=== PATIENT | female | born 1960 | race American Indian/Alaskan Native ===

== ENCOUNTER 2016-11-08 14:16 | Emergency (ER) | payer MEDICAID ==
[2016-11-08 14:17] VITALS: BMI 25.0
[2016-11-08 14:36] VITALS: RESP 18; TEMP 98.6; O2SAT 98
--- NOTE | 2016-11-08 16:30 | C.PDOC ---
History Of Present Illness 56 y/o female with H/o chronic lower back pain, DJD, and sciatica presents to ED with complaints of lower back pain worse with movement. Patient noted moving fridge x2 days ago prompted pain. Notes this feels like her usual flare ups, no new symptoms. Patient denies direct trauma, incontinence, urinary frequency, dysuria or any other complaints at this time. Time Seen by Provider: 11/08/16 15:35 Chief Complaint (Nursing): Back Pain History Per: Patient History/Exam Limitations: no limitations Onset/Duration Of Symptoms: Days Current Symptoms Are (Timing): Still Present Quality Of Discomfort: "Pain" Past Medical History Reviewed: Historical Data, Nursing Documentation, Vital Signs Vital Signs: Last Vital Signs Temp 98.6 F 11/08/16 14:35 Pulse 76 11/08/16 16:41 Resp 18 11/08/16 16:41 BP 124/72 11/08/16 16:41 Pulse Ox 98 11/08/16 17:53 - Medical History PMH: Asthma, Back Problems (Sciatica), HTN Family History: States: Unknown Family Hx - Social History Hx Tobacco Use: No Hx Alcohol Use: No Hx Substance Use: No - Immunization History Hx Tetanus Toxoid Vaccination: No Hx Influenza Vaccination: No Hx Pneumococcal Vaccination: No Review Of Systems Except As Marked, All Systems Reviewed And Found Negative. Genitourinary: Negative for: Dysuria, Frequency Musculoskeletal: Positive for: Back Pain Skin: Negative for: Rash Physical Exam - Physical Exam Appears: Non-toxic, No Acute Distress Skin: Normal Color, Warm Head: Atraumatic, Normacephalic Eye(s): bilateral: Normal Inspection, EOMI Nose: Normal Oral Mucosa: Moist Neck: Normal ROM, Supple Chest: Symmetrical Cardiovascular: Rhythm Regular Respiratory: Normal Breath Sounds, No Rales, No Rhonchi, No Wheezing Gastrointestinal/Abdominal: Soft, No Tenderness, No Guarding, No Rebound Back: No CVA Tenderness, No Vertebral Tenderness, Other (Left paralumbar tenderness) Extremity: Normal ROM Neurological/Psych: Oriented x3, Normal Speech, Normal Sensation, Other (No focal deficits) Gait: Steady (without any evidence of discomfort) ED Course And Treatment O2 Sat by Pulse Oximetry: 98 (RA) Pulse Ox Interpretation: Normal Progress Note: Patient requesting Tramadol. On reassessment, patient resting comfortably, no longer having back pain, no fever, no bony tenderness, no numbness, no weakness, no abdominal pain. Patient is ambulatory in the emergency department with no discomfort. Patient was instructed to follow up with physician/clinic in 1-2 days for further evaluation or return to ED if symptoms persist or worsen. HUNTER evaluated patient received Tylenol w/codeine 30 tabs 10/22/16. 10/14/16 60 tabs of Tramadol. Pt was instructed to follow upwith Pain management /PMD. Reevaluation Time: 04:15 (Patient feeling better) Reassessment Condition: Improved Disposition - Disposition Disposition: HOME/ ROUTINE Disposition Time: 16:30 Condition: STABLE Additional Instructions: Follow up with primary medical doctor in 1-3 days without fail for further evaluation. Take medications as prescribed. Return to the emergency department at any time if symptoms persist or worsen. Prescriptions: Ketorolac Tromethamine [Toradol] 10 mg PO Q6 PRN #20 tab PRN Reason: Pain, Moderate (4-7) Instructions: Acute Low Back Pain (ED) - Clinical Impression Clinical Impression: Lumbar back pain - PA / CORRECTIONAL OFFICER CAPTAIN / Resident Statement MD/DO has reviewed & agrees with the documentation as recorded. - Scribe Statement The provider has reviewed the documentation as recorded by the Delores Lynn All medical record entries made by the Delores were at my direction and personally dictated by me. I have reviewed the chart and agree that the record accurately reflects my personal performance of the history, physical exam, medical decision making, and the department course for this patient. I have also personally directed, reviewed, and agree with the discharge instructions and disposition.
[2016-11-08 16:43] VITALS: BP 124/72; PULSE 76
== END 2016-11-08 16:43 | disposition home or self-care (01) ==
LOC: C.ER 14:16
DX: M54.5 Low back pain (principal)

== ENCOUNTER 2016-12-25 06:13 | Emergency (ER) | payer MEDICAID, OTHER ==
[2016-12-25 06:13] VITALS: BMI 25.0
[2016-12-25 06:23] VITALS: BP 136/96; PULSE 75; RESP 14; TEMP 97.5; O2SAT 100
[2016-12-25] MEDS ORDERED: Lidocaine 5% Patch TD STA (07:16)
[2016-12-25] MEDS ORDERED: Lidocaine 5% Patch TD ONE (07:20)
--- NOTE | 2016-12-25 07:33 | C.PDOC ---
History Of Present Illness 56 year old female who presents to the ER with a complaint of chronic lower back pain exacerbation that began 2 days ago after doing heavy lifting. Patient states pain is dull, constant, 6/10, non radiating, no associated numbness. Patient denies incontinence, dysuria, hematuria, weakness, or numbness. Patient states, chronic injury since 1989. Time Seen by Provider: 12/25/16 07:07 Chief Complaint (Nursing): Back Pain History Per: Patient History/Exam Limitations: no limitations Onset/Duration Of Symptoms: Days Current Symptoms Are (Timing): Still Present Quality Of Discomfort: Unable To Describe Previous Symptoms: Chronic Pain Associated Symptoms: None Recent travel outside of the [place]: No Past Medical History Reviewed: Historical Data, Nursing Documentation, Vital Signs Vital Signs: Last Vital Signs Temp 97.5 F L 12/25/16 06:20 Pulse 75 12/25/16 06:20 Resp 14 12/25/16 06:20 BP 136/96 H 12/25/16 06:20 Pulse Ox 100 12/25/16 07:44 - Medical History PMH: Asthma, Back Problems (Sciatica), HTN Surgical History: No Surg Hx Family History: States: Unknown Family Hx - Social History Hx Tobacco Use: No Hx Alcohol Use: No Hx Substance Use: No - Immunization History Hx Tetanus Toxoid Vaccination: No Hx Influenza Vaccination: No Hx Pneumococcal Vaccination: No Review Of Systems Genitourinary: Negative for: Dysuria, Incontinence, Hematuria Musculoskeletal: Positive for: Back Pain Neurological: Negative for: Weakness, Numbness Physical Exam - Physical Exam Appears: Non-toxic, No Acute Distress Skin: Normal Color, Warm, Dry Head: Atraumatic, Normacephalic Oral Mucosa: Moist Back: Normal Inspection, No CVA Tenderness, No Vertebral Tenderness, No Paraspinal Tenderness Extremity: Normal ROM (x4), No Tenderness Neurological/Psych: Oriented x3, Normal Speech, Normal Cognition Gait: Steady ED Course And Treatment O2 Sat by Pulse Oximetry: 100 (Room air) Pulse Ox Interpretation: Normal Medical Decision Making Medical Decision Making: Plan: * Tylenol * Motrin * Lidoderm Patient refusing all the above medications. Requesting Toradol, given,. Requesting Tramadol Rx. Patient with multiple Tram[place] Rx on [place] Aware. Requesting discharge. Disposition Counseled Patient/Family Regarding: Diagnosis, Need For Followup - Disposition Disposition: HOME/ ROUTINE Disposition Time: 09:03 Condition: STABLE Instructions: Chronic Back Pain (ED) - Clinical Impression Clinical Impression: Chronic back pain - Scribe Statement The provider has reviewed the documentation as recorded by the Scribosiris Edwards All medical record entries made by the Scribe were at my direction and personally dictated by me. I have reviewed the chart and agree that the record accurately reflects my personal performance of the history, physical exam, medical decision making, and the department course for this patient. I have also personally directed, reviewed, and agree with the discharge instructions and disposition.
== END 2016-12-25 08:50 | disposition home or self-care (01) ==
LOC: C.ER 06:13
DX: G89.29 Other chronic pain (principal); M54.9 Dorsalgia, unspecified
CPT/HCPCS: 96372; 99283; J1885

== ENCOUNTER 2017-05-02 15:00 | Emergency (ER) | payer SELFPAY ==
[2017-05-02 15:01] VITALS: BMI 25.0
[2017-05-02 15:34] VITALS: O2SAT 95
--- NOTE | 2017-05-02 16:09 | C.PDOC ---
History Of Present Illness 56 year old female, with history of chronic back pain, presents to the ER complaining of "sciatica" which has been present for four days. Patient states that the pain radiates down her left leg. She reports that there was no relief with Advil or Tylenol. Patient states that she tried calling her primary care provider but she could not visit her today. Time Seen by Provider: 05/02/17 15:57 Chief Complaint (Nursing): Back Pain History Per: Patient History/Exam Limitations: no limitations Onset/Duration Of Symptoms: Days Current Symptoms Are (Timing): Still Present Severity: Moderate Past Medical History Reviewed: Historical Data, Nursing Documentation, Vital Signs Vital Signs: Last Vital Signs Temp 98.7 F 05/02/17 15:34 Pulse 90 05/02/17 15:34 Resp 17 05/02/17 15:34 BP 136/87 05/02/17 15:34 Pulse Ox 95 05/02/17 16:52 - Medical History PMH: Asthma, Back Problems (Sciatica), HTN Surgical History: No Surg Hx Family History: States: No Known Family Hx - Social History Hx Tobacco Use: No Hx Alcohol Use: No Hx Substance Use: No - Immunization History Hx Tetanus Toxoid Vaccination: No Hx Influenza Vaccination: No Hx Pneumococcal Vaccination: No Review Of Systems Constitutional: Negative for: Fever, Weakness, Malaise Cardiovascular: Negative for: Chest Pain, Palpitations Respiratory: Negative for: Cough, Shortness of Breath Gastrointestinal: Negative for: Vomiting, Abdominal Pain, Diarrhea Genitourinary: Negative for: Dysuria Musculoskeletal: Positive for: Back Pain (sciatica, pain radiates down the left leg) Physical Exam - Physical Exam Appears: Non-toxic, No Acute Distress Skin: Normal Color Head: Atraumatic, Normacephalic Eye(s): bilateral: Normal Inspection, EOMI Nose: Normal Neck: Supple Chest: Symmetrical Cardiovascular: Rhythm Regular Respiratory: Normal Breath Sounds, No Accessory Muscle Use Back: Normal Inspection (no bulging, no swelling), No Vertebral Tenderness, Paraspinal Tenderness (paralumbar tenderness), Straight Leg Raising (straight leg raising is negative) Extremity: Bilateral: Atraumatic, Normal Color And Temperature, Normal ROM Neurological/Psych: Oriented x3, Normal Speech, Other (no focal deficits) ED Course And Treatment O2 Sat by Pulse Oximetry: 95 (RA) Pulse Ox Interpretation: Normal Medical Decision Making Medical Decision Making: Impression: chronic back pain, sciatica [place] reviwed: 04/15/2017 TRAMADOL HCL 50 MG TABLET 45.0 04/13/2017 TRAMADOL HCL 50 MG TABLET 15.0 03/30/2017 TRAMADOL HCL 50 MG TABLET 45.0 03/27/2017 TRAMADOL HCL 50 MG TABLET 15.0 03/14/2017 TRAMADOL HCL 50 MG TABLET 15.0 Plan: * Toradol 30 mg PO * Ultram 50 mg PO Re-eval: 1715 Patient reports feeling better. Patient is asking for Rx Tramadol. Patient will be given short day supply of meds. Instruct patient to follow up with her PCP. Disposition Counseled Patient/Family Regarding: Studies Performed, Diagnosis, Need For Followup, Rx Given - Disposition Referrals: Doroteo Ivy MD [Medical Doctor] - Disposition: HOME/ ROUTINE Disposition Time: 17:20 Condition: STABLE Additional Instructions: Please follow up with your primary medicine or clinic in 2-5 days for further evaluation. Take pain medications as needed. Return to the emergency department at any time if symptoms persist or worsen. Prescriptions: Ibuprofen [Motrin] 600 mg PO Q8 #30 tab traMADol [Ultram] 50 mg PO Q8 #15 tab Instructions: Sciatica (ED) Forms: [employer] ([place]) - POA Present On Arrival: None - Clinical Impression Clinical Impression: Sciatic pain - PA / STUDIO SALES ASSOCIATE / Resident Statement MD/DO has reviewed & agrees with the documentation as recorded. - Scribe Statement The provider has reviewed the documentation as recorded by the Delores Blake Provider Attestation All medical record entries made by the Delores were at my direction and personally dictated by me. I have reviewed the chart and agree that the record accurately reflects my personal performance of the history, physical exam, medical decision making, and the department course for this patient. I have also personally directed, reviewed, and agree with the discharge instructions and disposition.
[2017-05-02 17:52] VITALS: BP 156/90; PULSE 88; RESP 16; TEMP 98.8
== END 2017-05-02 17:50 | disposition home or self-care (01) ==
LOC: C.ER 15:00
DX: M54.30 Sciatica, unspecified side (principal); I10 Essential (primary) hypertension
CPT/HCPCS: 96372; 99284; J1885

== ENCOUNTER 2017-05-18 14:39 | Emergency (ER) | payer MEDICAID ==
[2017-05-18 14:39] VITALS: BMI 25.0
--- NOTE | 2017-05-18 16:42 | C.PDOC ---
History Of Present Illness 56 y/io female c/o lower back pain x 2 days, hx of sciatic and bulging disks. pt sts pain typical of her chronic pain. pr requesting tramadol rx. pt's [place] aware reviewed: Filled ID Written Drug QTY Days Prescriber Rx # Pharmacy * Refills MME/D Pymt Type DESKTOP SUPPORT TECHNICIAN 05/02/2017 1 05/02/2017 TRAMADOL HCL 50 MG TABLET 15.0 5 KA MANUEL [id number] [facility] ([id number]) 0 15.0 [facility] [place] 04/15/2017 1 04/13/2017 TRAMADOL HCL 50 MG TABLET 45.0 11 PA LAURA [id number] [facility] ([id number]) 1 20.455 [facility] [place] 04/13/2017 1 04/13/2017 TRAMADOL HCL 50 MG TABLET 15.0 3 PA ALURA [id number] [facility] ([id number]) 0 25.0 [facility] [place] 03/30/2017 1 03/14/2017 TRAMADOL HCL 50 MG TABLET 45.0 11 PA LAURA [id number] [facility] ([id number]) 2 20.455 [facility] [place] 03/27/2017 1 03/14/2017 TRAMADOL HCL 50 MG TABLET 15.0 3 PA LAURA [id number] [facility] ([id number]) 1 25.0 [facility] [place] 03/14/2017 1 03/14/2017 TRAMADOL HCL 50 MG TABLET 60.0 15 PA LAURA [id number] [facility] ([id number]) 0 20.0 [facility] [place] 1 pt ran out of tramadol. denies any numbness, tingling, saddle anesthesia or weakness, no bladder or bowel dysfunction. Time Seen by Provider: 05/18/17 15:58 Chief Complaint (Nursing): Back Pain History Per: Patient History/Exam Limitations: no limitations Onset/Duration Of Symptoms: Days (2) Current Symptoms Are (Timing): Still Present Quality Of Discomfort: "Pain" Previous Symptoms: Back Pain (lower ) Associated Symptoms: denies: Incontinence, New Weakness, New Numbness Past Medical History Reviewed: Historical Data, Nursing Documentation, Vital Signs Vital Signs: Last Vital Signs Temp 97.7 F 05/18/17 16:50 Pulse 80 05/18/17 16:50 Resp 16 05/18/17 16:50 BP 137/96 H 05/18/17 16:50 Pulse Ox 99 05/18/17 16:55 - Medical History PMH: Asthma, Back Problems (Sciatica), HTN Surgical History: No Surg Hx Family History: States: Unknown Family Hx - Social History Hx Tobacco Use: No Hx Alcohol Use: No Hx Substance Use: No - Immunization History Hx Tetanus Toxoid Vaccination: No Hx Influenza Vaccination: No Hx Pneumococcal Vaccination: No Review Of Systems Musculoskeletal: Positive for: Back Pain (lower ) Physical Exam - Physical Exam Appears: Non-toxic, No Acute Distress Skin: Normal Color, Warm, Dry Back: No Vertebral Tenderness (midline ), Paraspinal Tenderness (left, lumbar ) Extremity: Capillary Refill (less than 2 seconds ) Neurological/Psych: Oriented x3, Normal Speech, Normal Cognition, Normal Motor, Normal Sensation Gait: Steady ED Course And Treatment O2 Sat by Pulse Oximetry: 99 (on RA) Pulse Ox Interpretation: Normal Medical Decision Making Medical Decision Making: pt requesting tramadol,. gets frequent rx for tramadol form pmd. discussed with patient how I can't write refill, pt given toradol and will get rx for ibupforen. pt ambulating with no distress. Disposition Counseled Patient/Family Regarding: Diagnosis, Need For Followup, Rx Given - Disposition Referrals: Doroteo Ivy MD [Medical Doctor] - Disposition: HOME/ ROUTINE Disposition Time: 16:42 Condition: STABLE Additional Instructions: FOllow up with Dr Ivy as soon as possible. Take ibuprofen as prescribed. Avoid heavy lifting. Prescriptions: Ibuprofen [Motrin] 600 mg PO TID #30 tab Instructions: Chronic Back Pain (ED) Forms: [facility] ([place]), General Discharge Instructions - Clinical Impression Clinical Impression: Chronic back pain - PA / COMMERCIAL LENDING ASSISTANT / Resident Statement MD/DO has reviewed & agrees with the documentation as recorded. - Scribe Statement The provider has reviewed the documentation as recorded by the Scribe (Lien Godinez) All medical record entries made by the Scribe were at my direction and personally dictated by me. I have reviewed the chart and agree that the record accurately reflects my personal performance of the history, physical exam, medical decision making, and the department course for this patient. I have also personally directed, reviewed, and agree with the discharge instructions and disposition.
[2017-05-18 16:50] VITALS: BP 137/96; PULSE 80; RESP 16; TEMP 97.7
[2017-05-18 16:55] VITALS: O2SAT 99
== END 2017-05-18 16:58 | disposition home or self-care (01) ==
LOC: C.ER 14:39
DX: G89.29 Other chronic pain (principal); M54.5 Low back pain; J45.909 Unspecified asthma, uncomplicated; I10 Essential (primary) hypertension
CPT/HCPCS: 96372; 99283; J1885

== ENCOUNTER 2017-06-09 12:58 | Emergency (ER) | payer MEDICAID ==
[2017-06-09 13:14] VITALS: BMI 22.7
[2017-06-09 13:18] VITALS: BP 137/97; PULSE 76; RESP 20; TEMP 97.5; O2SAT 99
--- NOTE | 2017-06-09 13:41 | C.PDOC ---
History Of Present Illness 56 y/o female with history of sciatica presents to ED with complaints of sciatica exacerbation radiating to left hip and legs. Patient is requesting Toradol and denies recent injury, weakness, numbness, fever, chills, bowel/ bladder incontinence or any other complaints at this time. States she usually takes Tramadol and will f/u with her PMD Time Seen by Provider: 06/09/17 13:22 Chief Complaint (Nursing): Back Pain History Per: Patient History/Exam Limitations: no limitations Onset/Duration Of Symptoms: Days Current Symptoms Are (Timing): Still Present Quality Of Discomfort: "Pain" Past Medical History Reviewed: Historical Data, Nursing Documentation, Vital Signs Vital Signs: Last Vital Signs Temp 97.5 F L 06/09/17 13:14 Pulse 76 06/09/17 13:14 Resp 20 06/09/17 13:14 BP 137/97 H 06/09/17 13:14 Pulse Ox 99 06/09/17 14:00 - Medical History PMH: Asthma, Back Problems (Sciatica), HTN Surgical History: No Surg Hx Family History: States: No Known Family Hx - Social History Hx Tobacco Use: No Hx Alcohol Use: No Hx Substance Use: No - Immunization History Hx Tetanus Toxoid Vaccination: No Hx Influenza Vaccination: No Hx Pneumococcal Vaccination: No Review Of Systems Constitutional: Negative for: Fever, Chills Gastrointestinal: Negative for: Nausea, Vomiting Genitourinary: Negative for: Dysuria, Incontinence Musculoskeletal: Positive for: Back Pain Skin: Negative for: Rash Neurological: Negative for: Weakness, Numbness Physical Exam - Physical Exam Appears: Non-toxic, No Acute Distress Skin: Warm, Dry, No Rash Head: Atraumatic, Normacephalic Oral Mucosa: Moist Neck: Normal ROM, Supple Gastrointestinal/Abdominal: Soft, No Tenderness, No Guarding, No Rebound Back: No CVA Tenderness Extremity: Normal ROM, Capillary Refill (<3 seconds) Neurological/Psych: Oriented x3, Normal Motor, Normal Sensation ED Course And Treatment O2 Sat by Pulse Oximetry: 99 (RA) Pulse Ox Interpretation: Normal Disposition Counseled Patient/Family Regarding: Diagnosis, Need For Followup, Rx Given - Disposition Disposition: HOME/ ROUTINE Disposition Time: 14:03 Condition: STABLE Additional Instructions: Follow up with your doctor. Prescriptions: Acetaminophen/Codeine [Tylenol/Codeine 300 MG/30 MG] 1 tab PO TID #12 tab Forms: [facility] (British), General Discharge Instructions - POA Present On Arrival: None - Clinical Impression Clinical Impression: Sciatica - Scribe Statement The provider has reviewed the documentation as recorded by the Scribosiris Lynn All medical record entries made by the Scribe were at my direction and personally dictated by me. I have reviewed the chart and agree that the record accurately reflects my personal performance of the history, physical exam, medical decision making, and the department course for this patient. I have also personally directed, reviewed, and agree with the discharge instructions and disposition.
== END 2017-06-09 14:23 | disposition home or self-care (01) ==
LOC: C.ER 12:58
DX: M54.30 Sciatica, unspecified side (principal); I10 Essential (primary) hypertension
CPT/HCPCS: 96372; 99283; J1885

== ENCOUNTER 2017-08-03 10:29 | Emergency (ER) | payer MEDICAID, OTHER ==
[2017-08-03 10:29] VITALS: BMI 22.7
[2017-08-03 10:40] VITALS: O2SAT 97
--- NOTE | 2017-08-03 11:21 | C.PDOC ---
History Of Present Illness 56 yo female with PMH HTN c/o left sided back pain radiating down the left leg. Pt notes she has had this problem for 20+ years and the pain exacerbated "every now and then, especially with the cold weather." Pt notes she usually gets Tramadol from doctor Biju who referred her to pain management but she hasnt followed up. She has no new symptoms, no new trauma. Pt had MRI last Mar 2017 noting "herniated discs and arthritis." Denies change in sensation, weakness, urinary/bowel incontinence. Of note, pt admits to a h/o HTN though notes she does not take medicine noting " i dont need any medicine." Denies dizziness, chest pain, sob, headache, or visual changes. Time Seen by Provider: 08/03/17 11:06 Chief Complaint (Nursing): Back Pain History Per: Patient History/Exam Limitations: no limitations Onset/Duration Of Symptoms: Days, Intermittent Episodes Current Symptoms Are (Timing): Still Present Associated Symptoms: denies: Incontinence, New Weakness, New Numbness Exacerbating Factor(s): Movement Past Medical History Vital Signs: Last Vital Signs Temp 98.1 F 08/03/17 11:39 Pulse 66 08/03/17 11:39 Resp 18 08/03/17 11:39 BP 151/102 H 08/03/17 11:39 Pulse Ox 97 08/03/17 11:39 - Medical History PMH: Asthma, Back Problems (Sciatica), Bronchitis, HTN Family History: States: Unknown Family Hx - Social History Hx Tobacco Use: No Hx Alcohol Use: No Hx Substance Use: No - Immunization History Hx Tetanus Toxoid Vaccination: No Hx Influenza Vaccination: No Hx Pneumococcal Vaccination: No Review Of Systems Except As Marked, All Systems Reviewed And Found Negative. Musculoskeletal: Positive for: Back Pain Physical Exam - Physical Exam Appears: Well, Non-toxic, No Acute Distress Skin: Normal Color, Warm, Dry Head: Atraumatic, Normacephalic Eye(s): bilateral: Normal Inspection, EOMI Nose: Normal Oral Mucosa: Moist Neck: Normal, Normal ROM, Supple Chest: Symmetrical Cardiovascular: Rhythm Regular Respiratory: Normal Breath Sounds, No Accessory Muscle Use Gastrointestinal/Abdominal: Normal Exam, Soft, No Tenderness Back: No CVA Tenderness, No Vertebral Tenderness, Paraspinal Tenderness ((+) left lower paralumbar tenderness and buttock. ) Extremity: Normal ROM Extremity: Bilateral: Atraumatic Neurological/Psych: Oriented x3, Normal Speech, Normal Motor, Normal Sensation ED Course And Treatment O2 Sat by Pulse Oximetry: 97 Progress Note: Pt was ordered Toradol. Pt refused it, requestign discharge with RX. Pt was educated on risks of untreated HTN. Pt insists that her bp is elevated from the pain and she is otherwise asymptomatic. Pt was encoarged to get her BP rechecked tomorrow with her PMD. Disposition - Disposition Referrals: Arturo Carlos MD [Staff Provider] - [facility] [Outside] Disposition: HOME/ ROUTINE Disposition Time: 11:20 Condition: STABLE Additional Instructions: Follow up with pain management. Return to ER if symptoms persist or worsen. Prescriptions: Ketorolac Tromethamine [Toradol] 10 mg PO Q6 PRN #20 tab PRN Reason: Pain, Moderate (4-7) Instructions: Low Back Pain in Adults Forms: [facility] ([place]) - Clinical Impression Clinical Impression: Low back pain
[2017-08-03 11:40] VITALS: BP 151/102; PULSE 66; RESP 18; TEMP 98.1
== END 2017-08-03 11:49 | disposition home or self-care (01) ==
LOC: C.ER 10:29
DX: M54.5 Low back pain (principal)

== ENCOUNTER 2017-08-20 10:26 | Emergency (ER) | payer OTHER ==
[2017-08-20 10:26] VITALS: BMI 22.7
[2017-08-20 10:32] VITALS: BP 133/93; PULSE 90; RESP 16; TEMP 97.6; O2SAT 96
--- NOTE | 2017-08-20 10:55 | C.PDOC ---
History Of Present Illness 56 year old female, with a past medical history of chronic sciatica, presents to the emergency department complaining of lower back pain radiating down the left leg with onset several days ago. Patient reports symptoms worsen when "weather is bad," and she is requesting a Toradol injection. She denies any falls/injuries, fever, sensory changes, dysuria/hematuria, urinary retention, bowel/bladder incontinence. PMD: Doroteo Ivy Time Seen by Provider: 08/20/17 10:37 Chief Complaint (Nursing): Back Pain History Per: Patient History/Exam Limitations: no limitations Onset/Duration Of Symptoms: Days (chronic ), Worse Since (couple of days) Current Symptoms Are (Timing): Still Present Quality Of Discomfort: "Pain" Severity: Moderate Previous Symptoms: Back Pain Associated Symptoms: None Exacerbating Factor(s): Movement Past Medical History Reviewed: Historical Data, Nursing Documentation, Vital Signs Vital Signs: Last Vital Signs Temp 97.6 F 08/20/17 10:29 Pulse 90 08/20/17 10:29 Resp 16 08/20/17 10:29 BP 133/93 H 08/20/17 10:29 Pulse Ox 96 08/20/17 12:48 - Medical History PMH: Asthma, Back Problems (Sciatica), Bronchitis, HTN (no meds) Surgical History: No Surg Hx Family History: States: No Known Family Hx - Social History Hx Tobacco Use: No Hx Alcohol Use: No Hx Substance Use: No - Immunization History Hx Tetanus Toxoid Vaccination: No Hx Influenza Vaccination: No Hx Pneumococcal Vaccination: No Review Of Systems Except As Marked, All Systems Reviewed And Found Negative. Constitutional: Negative for: Fever, Chills Gastrointestinal: Negative for: Abdominal Pain Genitourinary: Negative for: Dysuria, Hematuria Musculoskeletal: Positive for: Back Pain (chronic back pain radiating down the left leg) Neurological: Negative for: Weakness, Numbness Physical Exam - Physical Exam Appears: Well, Non-toxic, In Acute Distress (in mild pain ) Skin: Normal Color, Warm, Dry Head: Normacephalic Eye(s): bilateral: Normal Inspection Oral Mucosa: Moist Cardiovascular: Rhythm Regular Respiratory: Normal Breath Sounds, No Rales, No Rhonchi, No Wheezing Back: No CVA Tenderness, No Vertebral Tenderness, Paraspinal Tenderness (left sided lumbar TTP ) Extremity: Normal ROM, No Deformity, No Swelling Extremity: Bilateral: Normal Color And Temperature, Normal ROM Neurological/Psych: Oriented x3, Normal Sensation Gait: Steady ED Course And Treatment O2 Sat by Pulse Oximetry: 96 (RA) Pulse Ox Interpretation: Normal Progress Note: Initial Impression: Chronic sciatica with exacerbation. Plan: Patient given Toradol 60 mg IM. On reassessment, patient's pain has improved and she is comfortable being discharged home. Rx for Toradol PO given at her request. She was instructed to follow up with PMD in 1-2 days, and understands she should return to ED if symptoms worsen. Reevaluation Time: 11:15 Reassessment Condition: Improved Disposition Counseled Patient/Family Regarding: Diagnosis, Need For Followup, Rx Given - Disposition Referrals: Doroteo Ivy MD [Medical Doctor] - Disposition: HOME/ ROUTINE Disposition Time: 11:15 Condition: STABLE Additional Instructions: FOLLOW UP WITH YOUR DOCTOR IN 1-2 DAYS USE MEDICATIONS NEEDED RETURN TO ER IF SYMPTOMS WORSEN Prescriptions: Ketorolac Tromethamine [Toradol] 10 mg PO BID PRN #30 tab PRN Reason: pain Instructions: Sciatica (DC) Forms: [employer] (Azerbaijani) Print Language: KHMER - POA Present On Arrival: None - Clinical Impression Clinical Impression: Lumbar back pain, Sciatica - Scribe Statement The provider has reviewed the documentation as recorded by the Delores Flores Provider Attestation: All medical record entries made by the Delores were at my direction and personally dictated by me. I have reviewed the chart and agree that the record accurately reflects my personal performance of the history, physical exam, medical decision making, and the department course for this patient. I have also personally directed, reviewed, and agree with the discharge instructions and disposition.
== END 2017-08-20 11:22 | disposition home or self-care (01) ==
LOC: C.ER 10:26
DX: M54.42 Lumbago with sciatica, left side (principal)

== ENCOUNTER 2017-09-02 15:00 | Emergency (ER) | payer OTHER ==
[2017-09-02 15:00] VITALS: BMI 22.7
[2017-09-02 15:14] VITALS: BP 132/89; PULSE 84; RESP 16; TEMP 97.4; O2SAT 98
--- NOTE | 2017-09-02 15:26 | C.PDOC ---
History Of Present Illness 56 year old female with PMHx of chronic back pain presents to the ED c/o left sided lower back pain radiating down to her left leg. Patient reports her pain flares up from time to time. Patient reports today pain worsened. Patient denies injury, fall, trauma, weakness, numbness, saddle anesthesia, urinary/bowel incontinence. Time Seen by Provider: 09/02/17 15:14 Chief Complaint (Nursing): Back Pain History Per: Patient History/Exam Limitations: no limitations Onset/Duration Of Symptoms: Days Current Symptoms Are (Timing): Still Present Quality Of Discomfort: "Pain" Previous Symptoms: Back Pain Associated Symptoms: None Exacerbating Factor(s): Movement Recent travel outside of the [place]: No Additional History Per: Patient Past Medical History Reviewed: Historical Data, Nursing Documentation, Vital Signs Vital Signs: Last Vital Signs Temp 97.4 F L 09/02/17 15:12 Pulse 84 09/02/17 15:12 Resp 16 09/02/17 15:12 BP 132/89 09/02/17 15:12 Pulse Ox 98 09/02/17 16:30 - Medical History PMH: Asthma, Back Problems (Sciatica), Bronchitis, HTN Surgical History: No Surg Hx Family History: States: Unknown Family Hx - Social History Hx Tobacco Use: No Hx Alcohol Use: No Hx Substance Use: No - Immunization History Hx Tetanus Toxoid Vaccination: No Hx Influenza Vaccination: No Hx Pneumococcal Vaccination: No Review Of Systems Except As Marked, All Systems Reviewed And Found Negative. Constitutional: Negative for: Fever, Chills Cardiovascular: Negative for: Chest Pain Respiratory: Negative for: Shortness of Breath Gastrointestinal: Negative for: Abdominal Pain Genitourinary: Negative for: Incontinence Musculoskeletal: Positive for: Back Pain Skin: Negative for: Rash Neurological: Negative for: Weakness, Numbness Physical Exam - Physical Exam Appears: Non-toxic, No Acute Distress Skin: Normal Color, Warm, Dry Head: Atraumatic, Normacephalic Eye(s): bilateral: Normal Inspection Nose: No Discharge Oral Mucosa: Moist Neck: Normal ROM, Supple Back: No Vertebral Tenderness, Muscle Spasm (left side lower back) Extremity: Normal ROM, No Tenderness, No Swelling Neurological/Psych: Oriented x3, Normal Motor, Normal Sensation Gait: Steady ED Course And Treatment O2 Sat by Pulse Oximetry: 98 (On RA) Pulse Ox Interpretation: Normal Medical Decision Making Medical Decision Making: Plan: * Decadron 8 mg IM * Flexeril 10 mg PO * Toradol 30 mg IM On re-exam, the patient reports improvement of symptoms. Lungs are CTA, heart is RRR, abdomen is soft, non-tender and the patient is tolerating PO well. Ambulatory in the ED with steady gait. Follow up with the medical doctor within 1-2 days. Return if worsened Disposition - Disposition Referrals: Doroteo Ivy MD [Medical Doctor] - Disposition: HOME/ ROUTINE Disposition Time: 16:26 Condition: GOOD Additional Instructions: Follow up with the medical doctor within 1-2 days. Return if worsened Prescriptions: Cyclobenzaprine [Flexeril] 5 mg PO TID #21 tab Ketorolac Tromethamine [Toradol] 10 mg PO TID #15 tab Lidocaine 5% [Lidoderm] 1 each TP DAILY #10 patch Instructions: Low Back Pain (DC) Forms: [employer] (Slovak) - Clinical Impression Clinical Impression: Chronic back pain - PA / SPLUNK ARCHITECT / Resident Statement MD/DO has reviewed & agrees with the documentation as recorded. - Scribe Statement The provider has reviewed the documentation as recorded by the Scribe Gen Dumont All medical record entries made by the Scribe were at my direction and personally dictated by me. I have reviewed the chart and agree that the record accurately reflects my personal performance of the history, physical exam, medical decision making, and the department course for this patient. I have also personally directed, reviewed, and agree with the discharge instructions and disposition.
[2017-09-02] MEDS ORDERED: Dexamethasone 4 mg/1 ml IM STA (15:35)
[2017-09-02] MEDS ORDERED: Dexamethasone 4 mg/1 ml ONE (15:58)
== END 2017-09-02 16:41 | disposition home or self-care (01) ==
LOC: C.ER 15:00
DX: G89.29 Other chronic pain (principal); M54.5 Low back pain
CPT/HCPCS: 96372; 99283; J1885

== ENCOUNTER 2017-10-03 21:14 | Emergency (ER) | payer OTHER ==
[2017-10-03 21:14] VITALS: BMI 22.7
[2017-10-03 21:44] VITALS: BP 122/88; PULSE 70; RESP 14; TEMP 98.2; O2SAT 98
--- NOTE | 2017-10-03 22:36 | C.PDOC ---
History Of Present Illness Pt with h/o Sciatica presents to ER with low back pain x 2 days. Pt states pain is similar to her past sciatica pain and is requesting refill of her ultram. Pt states PMD is on vacation. Denies recent trauma, UTI sx, urinary or bowel incontinence, weakness, numbness of extremities. Time Seen by Provider: 10/03/17 21:49 Chief Complaint (Nursing): Back Pain History Per: Patient History/Exam Limitations: no limitations Current Symptoms Are (Timing): Still Present Severity: Moderate Pain Scale Rating Of: 7 Previous Symptoms: Chronic Pain Past Medical History Vital Signs: Last Vital Signs Temp 98.2 F 10/03/17 21:42 Pulse 70 10/03/17 21:42 Resp 14 10/03/17 21:42 BP 122/88 10/03/17 21:42 Pulse Ox 98 10/03/17 22:36 - Medical History PMH: Asthma, Back Problems (Sciatica), Bronchitis, HTN Family History: States: Unknown Family Hx - Social History Hx Tobacco Use: No Hx Alcohol Use: No Hx Substance Use: No - Immunization History Hx Tetanus Toxoid Vaccination: No Hx Influenza Vaccination: No Hx Pneumococcal Vaccination: No Review Of Systems Constitutional: Negative for: Fever Musculoskeletal: Positive for: Back Pain Neurological: Negative for: Weakness, Numbness Physical Exam - Physical Exam Appears: Well, Non-toxic Eye(s): bilateral: Normal Inspection Gastrointestinal/Abdominal: Normal Exam Back: Normal Inspection, No CVA Tenderness, No Vertebral Tenderness, Paraspinal Tenderness (ledt), Straight Leg Raising (40 degrees on Lt) Extremity: Normal ROM Neurological/Psych: Oriented x3, Normal Motor, Normal Sensation Gait: Steady ED Course And Treatment O2 Sat by Pulse Oximetry: 98 Pulse Ox Interpretation: Normal Progress Note: TRaoradol IM ordered Reassessment Condition: Improved (Pt is ambulatory and stable for d/c) Disposition - Disposition Referrals: Doroteo Ivy MD [Medical Doctor] - Disposition: HOME/ ROUTINE Disposition Time: 22:42 Condition: STABLE Additional Instructions: Please follow up with PMD Return to ER if worse Prescriptions: traMADol [Ultram] 50 mg PO TID #15 tab Instructions: Sciatica (DC) Forms: [employer] (Costa Rican) - Clinical Impression Clinical Impression: Sciatica
== END 2017-10-03 23:00 | disposition home or self-care (01) ==
LOC: C.ER 21:14
DX: M54.30 Sciatica, unspecified side (principal)
CPT/HCPCS: 96372; 99283; J1885

== ENCOUNTER 2017-10-10 19:51 | Emergency (ER) | payer OTHER ==
[2017-10-10 19:52] VITALS: BMI 22.7
[2017-10-10 20:15] VITALS: BP 140/93; PULSE 91; RESP 20; TEMP 98.9; O2SAT 99
[2017-10-10] MEDS ORDERED: Lidocaine 5% Patch TD STA (21:11)
[2017-10-10] MEDS ORDERED: Naproxen 550 mg Tab PO STA (21:11)
[2017-10-10] MEDS ORDERED: Naproxen 550 mg Tab PO ONE (21:21)
[2017-10-10] MEDS ORDERED: Lidocaine 5% Patch TD ONE (21:22)
--- NOTE | 2017-10-10 21:29 | C.PDOC ---
History Of Present Illness 57 year old female, whose PMHx includes back pain and sciatica, presents to the ED for evaluation of lower back pain which began a week ago. Patient reports he typically takes Tramadol for her symptoms, but she ran out and her pain has worsened. Patient denies abdominal pain, urinary/bowel incontinence, dysuria, extremity numbness/weakness. Time Seen by Provider: 10/10/17 20:25 Chief Complaint (Nursing): Back Pain History Per: Patient History/Exam Limitations: no limitations Onset/Duration Of Symptoms: Other (1 week) Current Symptoms Are (Timing): Still Present Quality Of Discomfort: "Pain" Previous Symptoms: Back Pain Associated Symptoms: denies: Incontinence, New Weakness, New Numbness Additional History Per: Patient Past Medical History Reviewed: Historical Data, Nursing Documentation, Vital Signs Vital Signs: Last Vital Signs Temp 98.9 F 10/10/17 20:04 Pulse 91 H 10/10/17 20:04 Resp 20 10/10/17 20:04 BP 140/93 H 10/10/17 20:04 Pulse Ox 99 10/10/17 21:59 - Medical History PMH: Asthma, Back Problems (Sciatica), Bronchitis, HTN Surgical History: No Surg Hx Family History: States: Unknown Family Hx - Social History Hx Tobacco Use: No Hx Alcohol Use: No Hx Substance Use: No - Immunization History Hx Tetanus Toxoid Vaccination: No Hx Influenza Vaccination: No Hx Pneumococcal Vaccination: No Review Of Systems Gastrointestinal: Negative for: Abdominal Pain Genitourinary: Negative for: Incontinence Musculoskeletal: Positive for: Back Pain Neurological: Negative for: Weakness, Numbness Physical Exam - Physical Exam Appears: Non-toxic, No Acute Distress Skin: Normal Color, Warm, Dry Head: Atraumatic, Normacephalic Eye(s): bilateral: Normal Inspection Oral Mucosa: Moist Neck: Supple Chest: Symmetrical, No Deformity, No Tenderness Cardiovascular: Rhythm Regular, No Murmur Respiratory: Normal Breath Sounds, No Rales, No Rhonchi, No Wheezing Gastrointestinal/Abdominal: Soft, No Tenderness, No Guarding, No Rebound Back: Paraspinal Tenderness (left-sided, lumbar ) Extremity: Normal ROM, No Tenderness, Capillary Refill (less than 2 seconds ), No Deformity, No Swelling Neurological/Psych: Oriented x3, Normal Speech, Normal Cognition, Normal Sensation Gait: Steady ED Course And Treatment O2 Sat by Pulse Oximetry: 99 (on RA) Pulse Ox Interpretation: Normal Medical Decision Making Medical Decision Making: Progress: Naproxen PO, Lidoderm TD, and Valium PO administered. On re-examination, patient is resting comfortably, showing no signs of distress and is ambulatory in the ED with a steady gait. Patient is stable for discharge and is advised to follow up with her PMD within 1-2 days for further evaluation. Disposition - Disposition Referrals: Celestino Farrell MD [Non-Staff] - Santos Montes MD [Staff Provider] - Maurice Dejesus MD [Medical Doctor] - Arturo Carlos MD [Staff Provider] - Disposition: HOME/ ROUTINE Disposition Time: 21:25 Condition: GOOD Additional Instructions: Follow up with the medical doctor within 1-2 days. Return if worsened. Prescriptions: Naproxen [Naprosyn] 500 mg PO BID #20 tab traMADol [Ultram] 50 mg PO Q6 PRN #5 tab PRN Reason: Pain Instructions: Sciatica Forms: [employer] (Ukrainian) - Clinical Impression Clinical Impression: Sciatica - PA / POURER BUGGY LADLE / Resident Statement MD/DO has reviewed & agrees with the documentation as recorded. - Scribe Statement The provider has reviewed the documentation as recorded by the Scribe (Lien Godinez) All medical record entries made by the Scribe were at my direction and personally dictated by me. I have reviewed the chart and agree that the record accurately reflects my personal performance of the history, physical exam, medical decision making, and the department course for this patient. I have also personally directed, reviewed, and agree with the discharge instructions and disposition.
== END 2017-10-10 21:43 | disposition home or self-care (01) ==
LOC: C.ER 19:51
DX: M54.32 Sciatica, left side (principal)

== ENCOUNTER 2017-10-19 14:55 | Emergency (ER) | payer OTHER ==
[2017-10-19 14:56] VITALS: BMI 22.7
[2017-10-19 15:12] VITALS: BP 156/86; PULSE 98; RESP 20; TEMP 97.4; O2SAT 100
[2017-10-19] MEDS ORDERED: Lidocaine 5% Patch TD STA (15:31)
[2017-10-19] MEDS ORDERED: Lidocaine 5% Patch TD ONE (15:37)
--- NOTE | 2017-10-19 15:42 | C.PDOC ---
History Of Present Illness 57 y/o female presents to ED with c/o low back pain radiating to left leg for 2 days. Patient states she has been prescribed Tramadol in the past with relief. Patient denies urine or stool incontinence, saddle anesthesia, abdominal pain or any other complaints at this time. Time Seen by Provider: 10/19/17 15:09 Chief Complaint (Nursing): Back Pain History Per: Patient History/Exam Limitations: no limitations Onset/Duration Of Symptoms: Days Current Symptoms Are (Timing): Still Present Quality Of Discomfort: "Pain" Past Medical History Reviewed: Historical Data, Nursing Documentation, Vital Signs Vital Signs: Last Vital Signs Temp 97.4 F L 10/19/17 15:09 Pulse 98 H 10/19/17 15:09 Resp 20 10/19/17 15:09 BP 156/86 H 10/19/17 15:09 Pulse Ox 100 10/19/17 15:56 - Medical History PMH: Asthma, Back Problems (Sciatica), Bronchitis, HTN Surgical History: No Surg Hx Family History: States: No Known Family Hx - Social History Hx Tobacco Use: No Hx Alcohol Use: No Hx Substance Use: No - Immunization History Hx Tetanus Toxoid Vaccination: No Hx Influenza Vaccination: No Hx Pneumococcal Vaccination: No Review Of Systems Except As Marked, All Systems Reviewed And Found Negative. Musculoskeletal: Positive for: Back Pain Physical Exam - Physical Exam Appears: Non-toxic, No Acute Distress Skin: Warm, Dry, No Rash Head: Atraumatic, Normacephalic Eye(s): bilateral: Normal Inspection Oral Mucosa: Moist Neck: Normal ROM, Supple Cardiovascular: Rhythm Regular Respiratory: Normal Breath Sounds, No Rales, No Rhonchi, No Wheezing Gastrointestinal/Abdominal: Soft, No Tenderness, No Guarding, No Rebound Back: Paraspinal Tenderness (crisis), Straight Leg Raising (30 degrees to left leg) Neurological/Psych: Oriented x3, Normal Speech, Normal Cognition ED Course And Treatment O2 Sat by Pulse Oximetry: 100 (RA) Pulse Ox Interpretation: Normal Medical Decision Making Medical Decision Making: assessment: back pain Progress:5 tabs prescribed of Tramadol, Patient d/c with advised follow up to pain management Disposition Counseled Patient/Family Regarding: Diagnosis, Need For Followup, Rx Given - Disposition Referrals: Doroteo Ivy MD [Medical Doctor] - Disposition: HOME/ ROUTINE Disposition Time: 15:40 Condition: STABLE Additional Instructions: follow up with your doctor and pain management in 2 days call to make an appointment take medications as prescribed return to hospital if symptoms worsens or progress Prescriptions: traMADol [Ultram] 50 mg PO TID PRN #7 tab PRN Reason: Pain, Moderate (4-7) Instructions: Sciatica Forms: [employer] (Indonesian), General Discharge Instructions - Clinical Impression Clinical Impression: Sciatica - Scribe Statement The provider has reviewed the documentation as recorded by the Delores Lynn All medical record entries made by the Delores were at my direction and personally dictated by me. I have reviewed the chart and agree that the record accurately reflects my personal performance of the history, physical exam, medical decision making, and the department course for this patient. I have also personally directed, reviewed, and agree with the discharge instructions and disposition.
== END 2017-10-19 16:05 | disposition home or self-care (01) ==
LOC: C.ER 14:55
DX: M54.30 Sciatica, unspecified side (principal); I10 Essential (primary) hypertension
CPT/HCPCS: 96372; 99283; J1885

== ENCOUNTER 2017-10-24 20:21 | Emergency (ER) | payer OTHER ==
[2017-10-24 20:21] VITALS: BMI 22.7
[2017-10-24 20:53] VITALS: BP 140/98; PULSE 88; RESP 20; TEMP 98.8; O2SAT 99
--- NOTE | 2017-10-24 21:04 | C.PDOC ---
History Of Present Illness 57 year old female with PMHx of chronic back pain presents to the ED requesting refill for her pain medications. Patient has been seen several times in the past in the ED requesting medication refill as well. Patient right now is c/o exacerbation of her back pain. Patient was last seen in the ED on 10/19/17 and given prescription for Tramadol and follow up with PMD. Patient reports PMD still on vacation so she has not been able to see her PMD, will see him . Patient denies weakness, numbness, trauma, injury, fall, saddled anesthesia, bowel/urinary incontinence. Time Seen by Provider: 10/24/17 20:54 Chief Complaint (Nursing): Back Pain History Per: Patient History/Exam Limitations: no limitations Onset/Duration Of Symptoms: Days Current Symptoms Are (Timing): Still Present Quality Of Discomfort: "Pain" Previous Symptoms: Back Pain Associated Symptoms: None Recent travel outside of the [place]: No Additional History Per: Patient Past Medical History Reviewed: Historical Data, Nursing Documentation, Vital Signs Vital Signs: Last Vital Signs Temp 98.8 F 10/24/17 20:48 Pulse 88 10/24/17 20:48 Resp 20 10/24/17 20:48 BP 140/98 H 10/24/17 20:48 Pulse Ox 99 10/24/17 21:25 - Medical History PMH: Asthma, Back Problems (Sciatica), Bronchitis, HTN Surgical History: No Surg Hx Family History: States: Unknown Family Hx - Social History Hx Tobacco Use: No Hx Alcohol Use: No Hx Substance Use: No - Immunization History Hx Tetanus Toxoid Vaccination: No Hx Influenza Vaccination: No Hx Pneumococcal Vaccination: No Review Of Systems Constitutional: Negative for: Fever, Chills Cardiovascular: Negative for: Chest Pain Respiratory: Negative for: Cough, Shortness of Breath Gastrointestinal: Negative for: Vomiting, Abdominal Pain Genitourinary: Negative for: Incontinence Musculoskeletal: Positive for: Back Pain Neurological: Negative for: Weakness, Numbness Physical Exam - Physical Exam Appears: Non-toxic, No Acute Distress Skin: Normal Color, Warm, Dry Head: Atraumatic, Normacephalic Eye(s): bilateral: Normal Inspection Oral Mucosa: Moist Neck: Normal ROM, No Midline Cervical Tenderness, Supple Chest: Symmetrical Gastrointestinal/Abdominal: Soft, No Tenderness, No Guarding, No Rebound Back: No Vertebral Tenderness, No Paraspinal Tenderness Extremity: Normal ROM, No Tenderness, No Swelling Extremity: Bilateral: Atraumatic Neurological/Psych: Oriented x3, Normal Speech, Normal Motor, Normal Sensation Gait: Steady ED Course And Treatment O2 Sat by Pulse Oximetry: 99 (ON RA) Pulse Ox Interpretation: Normal Progress Note: Patient was not given a prescription for requested medication due to the fact that she has been given multiple prescriptions for Tramadol and NSAIDS on the past from this ED. Patient was advised to take Naproxen at home until she can follow up with PMD. Disposition - [facility] Disposition: HOME/ ROUTINE Disposition Time: 21:23 Condition: STABLE Additional Instructions: Please follow up in clinic or with PMD Tylenol and motrin for pain Return to ER if worse Instructions: Chronic Pain (DC) Forms: [employer] (Indonesian) - Clinical Impression Clinical Impression: Chronic back pain - PA / RN DIABETES / Resident Statement MD/DO has reviewed & agrees with the documentation as recorded. - Scribe Statement The provider has reviewed the documentation as recorded by the Scribosiris Dumont All medical record entries made by the Scribosiris were at my direction and personally dictated by me. I have reviewed the chart and agree that the record accurately reflects my personal performance of the history, physical exam, medical decision making, and the department course for this patient. I have also personally directed, reviewed, and agree with the discharge instructions and disposition.
== END 2017-10-24 21:37 | disposition home or self-care (01) ==
LOC: C.ER 20:21
DX: M54.9 Dorsalgia, unspecified (principal); G89.29 Other chronic pain

== ENCOUNTER 2017-12-04 18:28 | Emergency (ER) | payer OTHER ==
[2017-12-04 18:28] VITALS: BMI 22.7
[2017-12-04 19:07] VITALS: BP 139/103; PULSE 87; TEMP 98.8; O2SAT 97
--- NOTE | 2017-12-04 19:23 | C.PDOC ---
History Of Present Illness 57 year old female with PMHx of sciatica, chronic back pain presents to the ED requesting " shot for back pain", and refill for her pain medications Toradol PO. Patient has been seen multiple times/months for past 6 months du eto same complaints and medication refill. Patient right now is c/o exacerbation of her back pain. Patient was last seen in the ED on 10/19/17, 10/24/17 and given prescription for Tramadol and follow up with PMD. Patient denies fever, chills, known recent trauma or injury, abd. pain, N/V, UTi sx, denies weakness, numbness to B/L LEs, saddled anesthesia, bowel/urinary incontinence. Ambulate to Ed for evaluation, not in any apparent distress. Time Seen by Provider: 12/04/17 18:50 Chief Complaint (Nursing): Back Pain History Per: Patient Past Medical History Reviewed: Historical Data, Nursing Documentation, Vital Signs Vital Signs: Last Vital Signs Temp 98.8 F 12/04/17 18:40 Pulse 87 12/04/17 18:40 Resp 18 12/04/17 18:40 BP 139/103 H 12/04/17 18:40 Pulse Ox 97 12/04/17 18:40 - Medical History PMH: Asthma, Back Problems (Sciatica), Bronchitis, HTN Family History: States: Unknown Family Hx - Social History Hx Tobacco Use: No Hx Alcohol Use: No Hx Substance Use: No - Immunization History Hx Tetanus Toxoid Vaccination: No Hx Influenza Vaccination: No Hx Pneumococcal Vaccination: No Review Of Systems Except As Marked, All Systems Reviewed And Found Negative. Constitutional: Negative for: Fever, Chills Eyes: Negative for: Vision Change ENT: Negative for: Throat Pain Respiratory: Negative for: Cough Gastrointestinal: Negative for: Nausea, Vomiting, Abdominal Pain, Diarrhea Genitourinary: Negative for: Dysuria, Incontinence Musculoskeletal: Positive for: Back Pain. Negative for: Neck Pain Neurological: Negative for: Weakness, Numbness Physical Exam - Physical Exam Appears: Well, Non-toxic, No Acute Distress Skin: Normal Color, Warm, Dry, No Rash, No Jaundice Head: Normacephalic Eye(s): bilateral: PERRL Throat: Normal, No Erythema Neck: Normal ROM, Supple Gastrointestinal/Abdominal: Soft, No Tenderness, No Distention, No Guarding, No Rebound Back: No CVA Tenderness, No Vertebral Tenderness, Paraspinal Tenderness ( diffuse lumbar. NO midline tendernes,s no skin changes.) Extremity: Normal ROM, No Tenderness, No Deformity, No Swelling Neurological/Psych: Oriented x3, Normal Speech, Normal Motor, Normal Sensation, Normal Reflexes ED Course And Treatment O2 Sat by Pulse Oximetry: 97 Progress Note: On re-evaluation, pt is afebrile, hemodynamicaly stable. Non- toxic. AMbulatory in ED with stable gait. ABd: benign, (-) guarding, (-) rebound. back: (-) CVA tenderness. Neuyorlogicaly intact. Pt has clinical findings c/w sciatica with acute exacerbation of chr. lower back. Pt advised and ref. to F/u with PMD, PM in 2-3 days for further pain management. retrubn if any new chnages. Disposition Counseled Patient/Family Regarding: Diagnosis, Need For Followup, Rx Given - Disposition Referrals: Doroteo Ivy MD [Medical Doctor] - Disposition: HOME/ ROUTINE Disposition Time: 19:21 Condition: STABLE Additional Instructions: Follow up with PMD in 2-3 days for re-evaluation and further pain management return if any new changes. Prescriptions: Ketorolac Tromethamine [Toradol] 10 mg PO BID #10 tab Instructions: Sciatica - Clinical Impression Clinical Impression: Sciatica
[2017-12-04 19:40] VITALS: RESP 16
== END 2017-12-04 19:39 | disposition home or self-care (01) ==
LOC: C.ER 18:28
DX: M54.30 Sciatica, unspecified side (principal)
CPT/HCPCS: 96372; 99283; J1885

== ENCOUNTER 2018-01-13 18:02 | Emergency (ER) | payer OTHER ==
[2018-01-13 18:02] VITALS: BMI 22.7
[2018-01-13] MEDS ORDERED: Naproxen 550 mg Tab PO STA (19:00)
[2018-01-13] MEDS ORDERED: Naproxen 550 mg Tab PO ONE (19:09)
--- NOTE | 2018-01-13 19:49 | C.PDOC ---
History Of Present Illness 57 year old female with a Hx of chronic back pain presents to the ER stating she feels like the pain has been worsening over the past few days. Denies weakness, numbness, dysuria, hematuria, or incontinence. Time Seen by Provider: 01/13/18 18:34 Chief Complaint (Nursing): Back Pain History Per: Patient History/Exam Limitations: no limitations Onset/Duration Of Symptoms: Days Current Symptoms Are (Timing): Still Present Quality Of Discomfort: "Pain" Pain Scale Rating Of: 8 Previous Symptoms: Chronic Pain Associated Symptoms: None. denies: Incontinence, New Weakness, New Numbness Exacerbating Factor(s): Movement Recent travel outside of the [place]: No Past Medical History Reviewed: Historical Data, Nursing Documentation, Vital Signs Vital Signs: Last Vital Signs Temp 98.4 F 01/13/18 19:57 Pulse 74 01/13/18 19:57 Resp 16 01/13/18 19:57 BP 121/86 01/13/18 19:57 Pulse Ox 99 01/13/18 21:56 - Medical History PMH: Asthma, Back Problems (Sciatica), Bronchitis, HTN Family History: States: Unknown Family Hx - Social History Hx Tobacco Use: No Hx Alcohol Use: No Hx Substance Use: No - Immunization History Hx Tetanus Toxoid Vaccination: No Hx Influenza Vaccination: No Hx Pneumococcal Vaccination: No Review Of Systems Genitourinary: Negative for: Dysuria, Incontinence, Hematuria Musculoskeletal: Positive for: Back Pain Neurological: Negative for: Weakness, Numbness Physical Exam - Physical Exam Appears: Non-toxic Skin: Normal Color, Warm, Dry Head: Atraumatic, Normacephalic Eye(s): bilateral: Normal Inspection Oral Mucosa: Moist Neck: Normal ROM, Supple Chest: Symmetrical, No Tenderness Cardiovascular: Rhythm Regular, No Friction Rub, No Murmur Respiratory: Normal Breath Sounds, No Wheezing Back: No Vertebral Tenderness, Paraspinal Tenderness Extremity: Normal ROM (x4), No Swelling Neurological/Psych: Oriented x3, Normal Speech, Normal Motor, Normal Sensation Gait: Steady ED Course And Treatment O2 Sat by Pulse Oximetry: 99 (Room air) Pulse Ox Interpretation: Normal Medical Decision Making Medical Decision Making: Naproxen and tylenol administered. Patient report improvement of pain, she is ambulatory in the ER with a steady gait, will discharge home with Rx and instructions to follow up with PMD. Disposition - Disposition Referrals: Doroteo Ivy MD [Medical Doctor] - Disposition: HOME/ ROUTINE Disposition Time: 19:45 Condition: GOOD Additional Instructions: Follow up with the medical doctor within 1-2 days. Return if worsened. Prescriptions: Lidocaine 5% [Lidoderm] 1 each TP DAILY #10 patch Naproxen [Naprosyn] 500 mg PO BID #20 tab traMADol [Ultram] 50 mg PO Q6 PRN #12 tab PRN Reason: Pain Instructions: Low Back Pain in Adults Forms: [facility] [employer] (Citizen Of [place]) - Clinical Impression Clinical Impression: Lumbar back pain - PA / EXERCISE PHYSIOLOGY PROFESSOR / Resident Statement MD/DO has reviewed & agrees with the documentation as recorded. - Scribe Statement The provider has reviewed the documentation as recorded by the Scribosiris Edwards All medical record entries made by the Scribosiris were at my direction and personally dictated by me. I have reviewed the chart and agree that the record accurately reflects my personal performance of the history, physical exam, medical decision making, and the department course for this patient. I have also personally directed, reviewed, and agree with the discharge instructions and disposition.
[2018-01-13 19:58] VITALS: BP 121/86; PULSE 74; RESP 16; TEMP 98.4
[2018-01-13 21:51] VITALS: O2SAT 99
== END 2018-01-13 20:02 | disposition home or self-care (01) ==
LOC: C.EROB 18:02
DX: M54.5 Low back pain (principal)

== ENCOUNTER 2018-02-15 11:27 | Emergency (ER) | payer OTHER ==
[2018-02-15 11:27] VITALS: BMI 22.7
[2018-02-15 11:50] VITALS: BP 144/101; PULSE 88; RESP 16; TEMP 97.8; O2SAT 99
--- NOTE | 2018-02-15 12:27 | C.PDOC ---
History Of Present Illness 57 y/o female presents to ED with c/o left sided lower back pain that is chronic and exacerbated by rain. Patient states she ran out of Tramadol and is requesting refill. Patient blood pressure is high but is asymptomatic and denies change in sensation, dysuria, hematuria, bowel/bladder incontinence or any other complaints at this time. Time Seen by Provider: 02/15/18 12:12 Chief Complaint (Nursing): Back Pain History Per: Patient History/Exam Limitations: no limitations Onset/Duration Of Symptoms: Days Current Symptoms Are (Timing): Still Present Past Medical History Reviewed: Historical Data, Nursing Documentation, Vital Signs Vital Signs: Last Vital Signs Temp 97.8 F 02/15/18 11:42 Pulse 88 02/15/18 11:42 Resp 16 02/15/18 11:42 BP 144/101 H 02/15/18 11:42 Pulse Ox 99 02/15/18 11:42 - Medical History PMH: Asthma, Back Problems (Sciatica), Bronchitis, HTN Surgical History: No Surg Hx Family History: States: No Known Family Hx - Social History Hx Tobacco Use: No Hx Alcohol Use: No Hx Substance Use: No - Immunization History Hx Tetanus Toxoid Vaccination: No Hx Influenza Vaccination: No Hx Pneumococcal Vaccination: No Review Of Systems Genitourinary: Negative for: Dysuria, Incontinence, Hematuria Musculoskeletal: Positive for: Back Pain Neurological: Negative for: Weakness, Numbness Physical Exam - Physical Exam Appears: Non-toxic, No Acute Distress Skin: Warm, Dry, No Rash Head: Atraumatic, Normacephalic Eye(s): bilateral: Normal Inspection Oral Mucosa: Moist Neck: Normal ROM, Supple Back: No CVA Tenderness, No Paraspinal Tenderness, Other (mild left lumbar tenderness) Extremity: Normal ROM, No Pedal Edema, Capillary Refill (<2 seconds) Neurological/Psych: Oriented x3, Normal Motor, Normal Sensation ED Course And Treatment O2 Sat by Pulse Oximetry: 99 (RA) Pulse Ox Interpretation: Normal Medical Decision Making Medical Decision Making: Patient reports history of HTN and does not take medication. Patient d/c and advised to follow up with PMD in 1-2 days Disposition Counseled Patient/Family Regarding: Diagnosis, Need For Followup - Disposition Referrals: Doroteo Ivy MD [Medical Doctor] - Disposition: HOME/ ROUTINE Disposition Time: 12:31 Condition: GOOD Additional Instructions: Please follow up with Dr Ivy as soon as possible for a blood pressure check. It is elevated here in the ER. Cold compresses to your back several times a day. Recommend a physical therapy referral from you PMD. Tylenol or Aleve for pain. Prescriptions: Naproxen 250 mg PO BID #20 tab Instructions: High Blood Pressure (DC), Sciatica (DC), Sciatica Exercises Forms: [facility] (Jamaican), General Discharge Instructions - Clinical Impression Clinical Impression: Sciatica, Elevated blood pressure reading - PA / CHAIR MAKER / Resident Statement MD/DO has reviewed & agrees with the documentation as recorded. - Scribe Statement The provider has reviewed the documentation as recorded by the Yrisibosiris Lynn All medical record entries made by the Delores were at my direction and personally dictated by me. I have reviewed the chart and agree that the record accurately reflects my personal performance of the history, physical exam, medical decision making, and the department course for this patient. I have also personally directed, reviewed, and agree with the discharge instructions and disposition.
== END 2018-02-15 12:44 | disposition home or self-care (01) ==
LOC: C.ER 11:27
DX: M54.32 Sciatica, left side (principal); R03.0 Elevated blood-pressure reading, without diagnosis of hypertension
CPT/HCPCS: 96372; 99283; J1885

== ENCOUNTER 2018-02-20 08:44 | Emergency (ER) | payer OTHER ==
[2018-02-20 08:45] VITALS: BMI 22.7
[2018-02-20 08:53] VITALS: TEMP 97.5; O2SAT 100
[2018-02-20 10:18] VITALS: BP 134/94; PULSE 82; RESP 18
--- NOTE | 2018-02-20 10:59 | RAD ---
PROCEDURE: Left Hand Radiographs. HISTORY: s/p fall - r/o fx COMPARISON: None. FINDINGS: BONES: Bone alignment and mineralization are normal. There is no acute displaced fracture or bone destruction. JOINTS: Normal. No osteoarthritic changes. SOFT TISSUES: Normal. OTHER FINDINGS: None. IMPRESSION: No acute fracture or dislocation.
--- NOTE | 2018-02-20 11:02 | RAD ---
Date of service: 02/20/2018 PROCEDURE: Left Wrist Radiographs. HISTORY: s/p fall - r/o fx COMPARISON: None. FINDINGS: BONES: Bone alignment and mineralization are normal. There is no acute displaced fracture or bone destruction. There is a small subarticular radiolucency in the scaphoid which may represent a geode or benign cyst. JOINTS: Normal. No dislocation. SOFT TISSUES: Normal. OTHER FINDINGS: None. IMPRESSION: No acute displaced fracture or dislocation.
--- NOTE | 2018-02-20 11:37 | C.PDOC ---
History Of Present Illness 57 year old female presents to the ED with an abrasion to the left upper lip and left wrist pain since yesterday. She notes that she had a trip and fall yesterday but did not hit her head or lose consciousness after the fall. Denies weakness or numbness. Time Seen by Provider: 02/20/18 09:03 Chief Complaint (Nursing): Upper Extremity Problem/Injury History Per: Patient History/Exam Limitations: no limitations Onset/Duration Of Symptoms: Days Current Symptoms Are (Timing): Still Present Past Medical History Reviewed: Historical Data, Nursing Documentation, Vital Signs Vital Signs: Last Vital Signs Temp 97.5 F L 02/20/18 08:50 Pulse 82 02/20/18 10:18 Resp 18 02/20/18 11:23 BP 134/94 H 02/20/18 10:18 Pulse Ox 100 02/20/18 10:18 - Medical History PMH: Asthma, Back Problems (Sciatica), Bronchitis, HTN Family History: States: Unknown Family Hx - Social History Hx Tobacco Use: No Hx Alcohol Use: No Hx Substance Use: No - Immunization History Hx Tetanus Toxoid Vaccination: No Hx Influenza Vaccination: No Hx Pneumococcal Vaccination: No Review Of Systems Musculoskeletal: Positive for: Hand Pain (left wrist pain ) Skin: Positive for: Other (Abrasion to the left upper lip) Neurological: Negative for: Weakness, Numbness, Other (lack of consciousness) Physical Exam - Physical Exam Appears: Non-toxic, No Acute Distress Skin: Warm, Dry Head: Atraumatic, Normacephalic Eye(s): bilateral: Normal Inspection Lips: Abrasion (to the left upper lip) Neck: Normal, Normal ROM, Supple Extremity: Normal ROM (x4), Capillary Refill (<2 seconds), Other (Mild swelling to the posterior left wrist) Pulses: Left Radial: Normal, Right Radial: Normal Neurological/Psych: Oriented x3, Normal Speech, Normal Motor, Normal Sensation Gait: Steady ED Course And Treatment O2 Sat by Pulse Oximetry: 100 (RA) Pulse Ox Interpretation: Normal Medical Decision Making Medical Decision Making: Impression: 57 year old female complains of left wrist pain and an abrasion to the left upper lip Plan: -Acetaminophen 650 mg -Ibuprofen 650 mg Reassess and disposition: On reassessment, patient is resting comfortably, is tolerating PO, and pain has improved. Patient feels comfortable going home and is given instructions for follow up. Disposition - Disposition Referrals: Doroteo Ivy MD [Medical Doctor] - Disposition: HOME/ ROUTINE Disposition Time: 11:00 Condition: GOOD Additional Instructions: ALMA DELIA BRANTLEY, thank you for letting us take care of you today. Your provider was Dino Lloyd DO and you were treated for FALL/WRIST PAIN. The emergency medical care you received today was directed at your acute symptoms. If you were prescribed any medication, please fill it and take as directed. It may take several days for your symptoms to resolve. Return to the Emergency Department if your symptoms worsen, do not improve, or if you have any other problems. Please contact your doctor or call one of the physicians/clinics you have been referred to that are listed on the Patient Visit Information form that is included in your discharge packet. Bring any paperwork you were given at discharge with you along with any medications you are taking to your follow up visit. Our treatment cannot replace ongoing medical care by a primary care provider outside of the emergency department. Thank you for allowing the [email or web address] team to be part of your care today. Follow up with your primary care doctor in 3-4 days for re-evaluation and further management. Prescriptions: Tramadol HCl [Ultram] 25 mg PO Q8 PRN #10 tablet PRN Reason: Pain, Severe (8-10) Instructions: Wrist Sprain (DC) Forms: [employer] (Malay) - Clinical Impression Clinical Impression: Wrist sprain - Scribe Statement The provider has reviewed the documentation as recorded by the Scribe (Kenya Pinto) All medical record entries made by the Scribe were at my direction and personally dictated by me. I have reviewed the chart and agree that the record accurately reflects my personal performance of the history, physical exam, m edical decision making, and the department course for this patient. I have also personally directed, reviewed, and agree with the discharge instructions and disposition.
== END 2018-02-20 11:25 | disposition home or self-care (01) ==
LOC: C.ER 08:44
DX: S63.502A Unspecified sprain of left wrist, initial encounter (principal); W01.0XXA Fall on same level from slipping, tripping and stumbling without subsequent striking against object, initial encounter; Y92.9 Unspecified place or not applicable

== ENCOUNTER 2018-03-04 06:16 | Emergency (ER) | payer OTHER ==
[2018-03-04 06:17] VITALS: BMI 22.7
[2018-03-04 06:32] VITALS: BP 151/92; PULSE 88; RESP 16; TEMP 97.6; O2SAT 98
--- NOTE | 2018-03-04 07:31 | C.PDOC ---
History Of Present Illness 57 year old female with history of sciatica presents to ED complaining of left lower back pain that radiates down to left leg. Patient states she is not taking anything at home and the pain is nothing new from her baseline. Denies left lower extremity weakness, bowel or urinary incontinence, bowel or urinary retention, numbness, weakness, saddle anesthesia. Time Seen by Provider: 03/04/18 07:13 Chief Complaint (Nursing): Back Pain History Per: Patient History/Exam Limitations: no limitations Onset/Duration Of Symptoms: Days Past Medical History Reviewed: Historical Data, Nursing Documentation, Vital Signs Vital Signs: Last Vital Signs Temp 97.6 F 03/04/18 06:30 Pulse 88 03/04/18 06:30 Resp 16 03/04/18 06:30 BP 151/92 H 03/04/18 06:30 Pulse Ox 98 03/04/18 06:30 - Medical History PMH: Asthma, Back Problems (Sciatica), Bronchitis, HTN Surgical History: No Surg Hx Family History: States: No Known Family Hx - Social History Hx Tobacco Use: No Hx Alcohol Use: No Hx Substance Use: No - Immunization History Hx Tetanus Toxoid Vaccination: No Hx Influenza Vaccination: No Hx Pneumococcal Vaccination: No Review Of Systems Constitutional: Negative for: Fever, Chills Cardiovascular: Negative for: Chest Pain Respiratory: Negative for: Cough, Shortness of Breath Gastrointestinal: Negative for: Nausea, Vomiting, Abdominal Pain Genitourinary: Negative for: Incontinence Musculoskeletal: Positive for: Back Pain (Left lower back pain), Leg Pain (LEft leg pain that radiates from the the lower back) Neurological: Positive for: Other (No saddle anesthesia). Negative for: Weakness, Numbness Physical Exam - Physical Exam Appears: Non-toxic, No Acute Distress Skin: Warm, Dry, No Rash Head: Atraumatic, Normacephalic Eye(s): bilateral: PERRL, EOMI Oral Mucosa: Moist Neck: No Midline Cervical Tenderness, Supple Chest: Symmetrical, No Deformity, No Tenderness Cardiovascular: Rhythm Regular, No Murmur Respiratory: Normal Breath Sounds (Clear to auscultation), No Rales, No Rhonchi, No Wheezing Gastrointestinal/Abdominal: Soft, No Tenderness, No Distention, Other (Normoactive bowel sounds.) Back: No CVA Tenderness, Other (Mild tenderness to lower left side.) Extremity: No Calf Tenderness, No Swelling Neurological/Psych: Oriented x3, Normal Speech, Normal Motor, Normal Sensation ED Course And Treatment O2 Sat by Pulse Oximetry: 98 (RA) Pulse Ox Interpretation: Normal Medical Decision Making Medical Decision Making: Plan: * Toradol Disposition Counseled Patient/Family Regarding: Diagnosis, Need For Followup - Disposition Referrals: Doroteo Ivy MD [Medical Doctor] - Disposition: HOME/ ROUTINE Disposition Time: 07:51 Condition: GOOD Additional Instructions: Please follow up with Dr Ivy as soon as possible. Recommend you have your blood pressure checked in next few days and discuss medications with Dr Ivy. Return to ER for chest pain. shortness of breath or any other concerns. Naproxen or Tylenol for pain if needed. Instructions: Low Back Pain (DC) Forms: [facility] (Yakut), General Discharge Instructions - Clinical Impression Clinical Impression: Low back pain, Elevated blood pressure reading - PA / RAILROAD YARD WORKER / Resident Statement MD/DO has reviewed & agrees with the documentation as recorded. - Scribe Statement The provider has reviewed the documentation as recorded by the Yrisibe Familia Amaya All medical record entries made by the Delores were at my direction and personally dictated by me. I have reviewed the chart and agree that the record accurately reflects my personal performance of the history, physical exam, medical decision making, and the department course for this patient. I have also personally directed, reviewed, and agree with the discharge instructions and disposition.
== END 2018-03-04 07:58 | disposition home or self-care (01) ==
LOC: C.ER 06:16
DX: M54.5 Low back pain (principal); I10 Essential (primary) hypertension
CPT/HCPCS: 96372; 99283; J1885

== ENCOUNTER 2018-04-11 16:02 | Emergency (ER) | payer OTHER ==
[2018-04-11 16:03] VITALS: BMI 22.7
[2018-04-11 16:32] VITALS: BP 164/103; PULSE 97; RESP 18; TEMP 98.1; O2SAT 100
--- NOTE | 2018-04-11 16:55 | C.PDOC ---
History Of Present Illness 57 year old female presents to the ED seeking refill of narcotic pain relievers for her lower back pain that radiates to the left lower leg. Patient has x10 visits this year. Total of x28 visits for the same complaint. Denies radiological studies for her back. Notes she followed up with PMD who prescribed Treamadol and Neurontin. Patient also has multiple Tylenol #3 from her dentist. Denies fever, numbness, tingling, and any other associated symptoms. Time Seen by Provider: 04/11/18 16:44 Chief Complaint (Nursing): Back Pain History Per: Patient History/Exam Limitations: no limitations Current Symptoms Are (Timing): Still Present Past Medical History Reviewed: Historical Data, Nursing Documentation, Vital Signs Vital Signs: Last Vital Signs Temp 98.1 F 04/11/18 16:29 Pulse 97 H 04/11/18 16:29 Resp 18 04/11/18 16:29 BP 164/103 H 04/11/18 16:29 Pulse Ox 100 04/11/18 16:29 - Medical History PMH: Asthma, Back Problems (Sciatica), Bronchitis, HTN Family History: States: Unknown Family Hx - Social History Hx Tobacco Use: No Hx Alcohol Use: No Hx Substance Use: No - Immunization History Hx Tetanus Toxoid Vaccination: No Hx Influenza Vaccination: No Hx Pneumococcal Vaccination: No Review Of Systems Except As Marked, All Systems Reviewed And Found Negative. Constitutional: Negative for: Fever Musculoskeletal: Positive for: Back Pain (lower.), Leg Pain (left. secondary to back pain. ) Neurological: Negative for: Weakness, Numbness, Incoordination Physical Exam - Physical Exam Appears: No Acute Distress, Combative, Other (argues with staff. izzy. confrontational. rapidly stands up and sits. paces in ED.) Skin: Normal Color, Warm, Dry Head: Normacephalic Eye(s): bilateral: PERRL Oral Mucosa: Moist Neck: Normal ROM, Trachea Midline, Supple Respiratory: Other (no acute respiratory distress.) Extremity: Normal ROM (x4) Neurological/Psych: Oriented x3, Normal Motor, Normal Sensation, Normal Reflexes ED Course And Treatment O2 Sat by Pulse Oximetry: 100 (RA) Pulse Ox Interpretation: Normal Medical Decision Making Medical Decision Making: Plan: -Motrin. no apparent back pain stands up from sitting rapidly and without apparent pain walking without pain today is 10th ED visit in 2018 for same. Total #28 ED visits for same. Usually Rx'd Tramadol PO Referral to pain management many times but non-compliant. reinforced ice/nsaids and opt f/u w PMD (writing gabapentin and tramadol regularly) [facility] 32 Rx's from 8 providers in past year Suspect Drug seeking Progress/Update: Patient refused Motrin tab. Disposition Doctor Will See Patient In The: Office Counseled Patient/Family Regarding: Studies Performed, Diagnosis - Disposition Referrals: Doroteo Ivy MD [Medical Doctor] - Disposition: HOME/ ROUTINE Disposition Time: 16:59 Condition: GOOD Additional Instructions: you may NOT present to the ED for CHRONIC pain issues, nor refills of narcotic pain meds. Follow-up with your PMD or Chronic Pain Specialist- as previously referred Refill narcotic pain meds w the previous prescriber. Continue motrin 400-600 mg every 6 hours as needed ice packs to lower back for local pain control no heat therapies. Prescriptions: Naloxone HCl [Narcan] 4 mg NS ONCE PRN #1 spray PRN Reason: narocotics overdose Instructions: Chronic Pain (DC), Prescription Drug Abuse (DC), How to Give Naloxone, Weaning Patients Off of Pain Drugs Forms: [employer] (Belarusian) - Clinical Impression Clinical Impression: Chronic back pain, Drug-seeking behavior - Scribe Statement The provider has reviewed the documentation as recorded by the Scribe (Shasha Mccartney) Provider Attestation: All medical record entries made by the Scribe were at my direction and personally dictated by me. I have reviewed the chart and agree that the record accurately reflects my personal performance of the history, physical exam, medical decision making, and the department course for this patient. I have also personally directed, reviewed, and agree with the discharge instructions and disposition.
== END 2018-04-11 17:14 | disposition home or self-care (01) ==
LOC: C.ER 16:02
DX: G89.29 Other chronic pain (principal); M54.9 Dorsalgia, unspecified; Z76.5 Malingerer [conscious simulation]

== ENCOUNTER 2018-04-22 14:13 | Emergency (ER) | payer OTHER ==
[2018-04-22 14:13] VITALS: BMI 22.7
[2018-04-22 14:17] VITALS: RESP 18
--- NOTE | 2018-04-22 14:44 | C.PDOC ---
History Of Present Illness 57 year old female presents to the emergency department with complaints of left- sided lower back pain which radiates down her left leg for the past week. Patient reports that the pain is now worse, hurting more when she moves and walks. She denies numbness, weakness, bowel/bladder incontinence, and abdominal pain. Time Seen by Provider: 04/22/18 14:33 Chief Complaint (Nursing): Back Pain History Per: Patient History/Exam Limitations: no limitations Onset/Duration Of Symptoms: Other (one week) Current Symptoms Are (Timing): Still Present Quality Of Discomfort: "Pain" Associated Symptoms: denies: Incontinence, New Weakness, New Numbness Exacerbating Factor(s): Movement, Other (walking) Past Medical History Reviewed: Historical Data, Nursing Documentation, Vital Signs Vital Signs: Last Vital Signs Temp 98.9 F 04/22/18 14:14 Pulse 79 04/22/18 14:14 Resp 18 04/22/18 14:14 BP Pulse Ox 100 04/22/18 14:14 - Medical History PMH: Asthma, Back Problems (Sciatica), Bronchitis, HTN Surgical History: No Surg Hx Family History: States: No Known Family Hx - Social History Hx Tobacco Use: No Hx Alcohol Use: No Hx Substance Use: No - Immunization History Hx Tetanus Toxoid Vaccination: No Hx Influenza Vaccination: No Hx Pneumococcal Vaccination: No Review Of Systems Except As Marked, All Systems Reviewed And Found Negative. Constitutional: Negative for: Fever, Chills Gastrointestinal: Negative for: Abdominal Pain Genitourinary: Negative for: Incontinence Musculoskeletal: Positive for: Back Pain (lower left-sided), Leg Pain (left leg) Neurological: Negative for: Weakness, Numbness Physical Exam - Physical Exam Appears: Non-toxic, No Acute Distress Skin: Normal Color, Warm, Dry, No Rash Head: Atraumatic, Normacephalic Eye(s): bilateral: Normal Inspection, PERRL, EOMI Oral Mucosa: Moist Throat: No Erythema, No Exudate Neck: Normal, Supple Chest: Symmetrical, No Tenderness Cardiovascular: Rhythm Regular, No Friction Rub, No Murmur Respiratory: Normal Breath Sounds, No Wheezing Gastrointestinal/Abdominal: Soft, No Tenderness, No Guarding, No Rebound Back: No CVA Tenderness, Paraspinal Tenderness (left-sided paralumbar tenderness) Extremity: Normal ROM (all extremities), No Swelling Neurological/Psych: Oriented x3, Normal Speech, Normal Cognition, Normal Motor, Normal Sensation Gait: Steady ED Course And Treatment O2 Sat by Pulse Oximetry: 100 (RA) Pulse Ox Interpretation: Normal Progress Note: Plan: Flexeril 10mg PO. Toradol 60mg IM Medical Decision Making Medical Decision Making: On re-exam, the patient reports improvement of symptoms. Lungs are CTA, heart is RRR, abdomen is soft, non-tender and tolerating PO well. PT is ambulatory in the ED with steady gait. Follow up with the medical doctor within 1-2 days. Return if worsened. Disposition - Disposition Referrals: Celestino Farrell MD [Non-Staff] - [facility] [Outside] [facility] [Outside] Disposition: HOME/ ROUTINE Disposition Time: 16:41 Condition: STABLE Additional Instructions: Follow up with the medical doctor within 1-2 days. Return if worsened. 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 - Scribe Statement The provider has reviewed the documentation as recorded by the Scribe (Jeff Amaro) All medical record entries made by the Scribe were at my direction and personally dictated by me. I have reviewed the chart and agree that the record accurately reflects my personal performance of the history, physical exam, medical decision making, and the department course for this patient. I have also personally directed, reviewed, and agree with the discharge instructions and disposition.
[2018-04-22 16:09] VITALS: BP 162/110; PULSE 71; TEMP 98
[2018-04-22 16:42] VITALS: O2SAT 100
== END 2018-04-22 17:06 | disposition home or self-care (01) ==
LOC: C.ER 14:13
DX: M54.30 Sciatica, unspecified side (principal); I10 Essential (primary) hypertension
CPT/HCPCS: 96372; 99283; J1885

== ENCOUNTER 2018-05-22 15:08 | Emergency (ER) | payer MEDICAID, OTHER ==
[2018-05-22 15:08] VITALS: BMI 22.7
[2018-05-22 15:27] VITALS: BP 154/85; PULSE 90; RESP 16; TEMP 98; O2SAT 100
--- NOTE | 2018-05-22 15:33 | C.PDOC ---
History Of Present Illness 57 y/o female comes in complaining of a recurring lower back pain. Patient had multiple ER visits for similar complaint. States she is noncompliant with pain management because insurance does not cover it but unable to provide when she last tried to find pain management provider. Patient denies trauma and states pain is similar to prior. RECUR L LOWER BACK PAIN. MULT ER VISITS FOR SAME. PS NONCOMPLIANT W PAIN MGMT BC "INSURANCE DOESN'T COVER IT" BUT UNABLE TO PROVIDE WHEN LAST TRIED TO FIND PAIN MGMT PROVIDER. NO TRAUMA. PAIN SIM TO PRIOR EXAM NAD AMBUL WO DIFF. NEURO INTACT BACK NE MDM KNOWN NONCOMPLIANT W OUTPT PAIN MGMT, MULT ER VISITS FOR SAME COMPLAINT. Time Seen by Provider: 05/22/18 15:25 Chief Complaint (Nursing): Back Pain History Per: Patient History/Exam Limitations: no limitations Onset/Duration Of Symptoms: Days Current Symptoms Are (Timing): Still Present Past Medical History Reviewed: Historical Data, Nursing Documentation, Vital Signs Vital Signs: Last Vital Signs Temp 98 F 05/22/18 15:19 Pulse 90 05/22/18 15:19 Resp 16 05/22/18 15:19 BP 154/85 H 05/22/18 15:19 Pulse Ox 100 05/22/18 15:19 - Medical History PMH: Asthma, Back Problems (Sciatica), Bronchitis, HTN Family History: States: No Known Family Hx - Social History Hx Tobacco Use: No Hx Alcohol Use: No Hx Substance Use: No - Immunization History Hx Tetanus Toxoid Vaccination: No Hx Influenza Vaccination: No Hx Pneumococcal Vaccination: No Review Of Systems Except As Marked, All Systems Reviewed And Found Negative. Constitutional: Negative for: Fever Cardiovascular: Negative for: Chest Pain Respiratory: Negative for: Shortness of Breath Gastrointestinal: Negative for: Abdominal Pain Musculoskeletal: Positive for: Back Pain. Negative for: Leg Pain Physical Exam - Physical Exam Appears: Non-toxic, No Acute Distress Skin: Warm, Dry Head: Atraumatic, Normacephalic Eye(s): bilateral: Normal Inspection Oral Mucosa: Moist Neck: Supple Chest: Symmetrical Cardiovascular: Rhythm Regular, No Murmur Respiratory: Normal Breath Sounds, No Rales, No Rhonchi, No Wheezing Gastrointestinal/Abdominal: Soft, No Tenderness Back: No CVA Tenderness, No Muscle Spasm, No Paraspinal Tenderness Extremity: Bilateral: Atraumatic, Normal Color And Temperature, Normal ROM Neurological/Psych: Oriented x3, Normal Speech, Normal Motor, Normal Sensation, Normal Reflexes Gait: Steady ED Course And Treatment O2 Sat by Pulse Oximetry: 100 (RA) Pulse Ox Interpretation: Normal Progress Note: Patient was given ultram PO. Progress - Data Reviewed Data Reviewed: Old records Medical Decision Making Medical Decision Making: KNOWN NONCOMPLIANT W OUTPT PAIN MGMT, MULT ER VISITS FOR SAME COMPLAINT. Disposition Counseled Patient/Family Regarding: Diagnosis, Need For Followup - Disposition Referrals: YOUR,PMD [Other] Disposition: HOME/ ROUTINE Disposition Time: 15:30 Condition: GOOD Instructions: Chronic Pain (DC) Forms: [employer] (Spanish) - Clinical Impression Clinical Impression: Drug-seeking behavior, Chronic back pain - Scribe Statement The provider has reviewed the documentation as recorded by the Delores Ybarra Provider Attestation: All medical record entries made by the Yrisibosiris were at my direction and personally dictated by me. I have reviewed the chart and agree that the record accurately reflects my personal performance of the history, physical exam, medical decision making, and the department course for this patient. I have also personally directed, reviewed, and agree with the discharge instructions and disposition.
== END 2018-05-22 16:06 | disposition home or self-care (01) ==
LOC: C.ER 15:08
DX: G89.29 Other chronic pain (principal); M54.5 Low back pain; Z76.5 Malingerer [conscious simulation]; Z91.19 Patient's noncompliance with other medical treatment and regimen

== ENCOUNTER 2018-07-01 13:54 | Emergency (ER) | payer OTHER ==
[2018-07-01 13:55] VITALS: BMI 22.7
[2018-07-01 14:04] VITALS: BP 137/87; PULSE 66; RESP 18; TEMP 97.2; O2SAT 99
--- NOTE | 2018-07-01 14:34 | C.PDOC ---
History Of Present Illness 57 y/o female comes in to ED complaining of left lower back pain, consistent with usual sciatic flare that radiates to left thigh x4 days. Patient has no new injuries and has not taken any pain medications at home or any hot water compresses. Denies any lower extremity weakness, bladder or bowel dysfunction, or saddle anesthesia. Time Seen by Provider: 07/01/18 14:10 Chief Complaint (Nursing): Back Pain History Per: Patient History/Exam Limitations: no limitations Onset/Duration Of Symptoms: Days Current Symptoms Are (Timing): Still Present Past Medical History Reviewed: Historical Data, Nursing Documentation, Vital Signs Vital Signs: Last Vital Signs Temp 97.2 F L 07/01/18 14:01 Pulse 66 07/01/18 14:01 Resp 18 07/01/18 14:01 BP 137/87 07/01/18 14:01 Pulse Ox 99 07/01/18 14:01 - Medical History PMH: Asthma, Back Problems (Sciatica), Bronchitis, HTN Family History: States: No Known Family Hx - Social History Hx Tobacco Use: No Hx Alcohol Use: No Hx Substance Use: No - Immunization History Hx Tetanus Toxoid Vaccination: No Hx Influenza Vaccination: No Hx Pneumococcal Vaccination: No Review Of Systems Gastrointestinal: Negative for: Abdominal Pain Genitourinary: Negative for: Dysuria, Hematuria Musculoskeletal: Positive for: Back Pain (left lower back), Leg Pain. Negative for: Neck Pain Neurological: Negative for: Weakness, Numbness, Other (saddle anesthesia) Physical Exam - Physical Exam Appears: Non-toxic, No Acute Distress Skin: Warm, Dry Head: Atraumatic, Normacephalic Eye(s): bilateral: Normal Inspection Oral Mucosa: Moist Neck: No Midline Cervical Tenderness, Supple Gastrointestinal/Abdominal: Bowel Sounds, Soft, No Tenderness, No Distention, No Guarding, No Rebound Back: No Vertebral Tenderness, Other (Minimal left lumbar tenderness) Extremity: Bilateral: Atraumatic, Normal Color And Temperature, Normal ROM Neurological/Psych: Oriented x3, Normal Speech, Normal Cognition ED Course And Treatment O2 Sat by Pulse Oximetry: 99 (RA) Pulse Ox Interpretation: Normal Medical Decision Making Medical Decision Making: Plan: --Naproxen 550 mg PO --Motrin 600 mg PO Disposition - Disposition Referrals: [facility] [Outside] [facility] [Outside] Disposition: HOME/ ROUTINE Disposition Time: 14:51 Condition: GOOD Additional Instructions: Take ibuprofen with food as prescribed. Follow up with your doctor. 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 - Scribe Statement The provider has reviewed the documentation as recorded by the Scribe Nikki Ybarra All medical record entries made by the Yrisibosiris were at my direction and personally dictated by me. I have reviewed the chart and agree that the record accurately reflects my personal performance of the history, physical exam, medical decision making, and the department course for this patient. I have also personally directed, reviewed, and agree with the discharge instructions and disposition.
[2018-07-01] MEDS ORDERED: Naproxen 550 mg Tab PO STA (14:49)
[2018-07-01] MEDS ORDERED: Naproxen 550 mg Tab PO ONE (14:52)
== END 2018-07-01 15:04 | disposition home or self-care (01) ==
LOC: C.ER 13:54
DX: M54.30 Sciatica, unspecified side (principal); I10 Essential (primary) hypertension

== ENCOUNTER 2018-08-13 14:54 | Emergency (ER) | payer OTHER ==
[2018-08-13 15:03] VITALS: BMI 24.9
[2018-08-13 15:04] VITALS: BP 125/81; PULSE 92; RESP 18; TEMP 98.7; O2SAT 99
--- NOTE | 2018-08-13 15:20 | C.PDOC ---
History Of Present Illness Patient is a 57 year old female, with a PMHx of HTN, sciatica and degenerative disc disease, who presents to the ED c/o left back pain that began 4 days ago. Patient believes she is having a sciatica flare up and notes swelling to her lower back. She rates the pain as a 6/10. Patient reports that she was diagnosed with degenerative disc disease more than [address] George who was her PMD until recently. She switched doctors due to a change in her living situation. She also reports that medications Ultram and Gabapentin have helped her in the past. Time Seen by Provider: 08/13/18 15:05 Chief Complaint (Nursing): Back Pain History Per: Patient History/Exam Limitations: no limitations Onset/Duration Of Symptoms: Days (4) Current Symptoms Are (Timing): Still Present Quality Of Discomfort: "Pain" Pain Scale Rating Of: 6 Recent travel outside of the [place]: No Additional History Per: Patient Past Medical History Reviewed: Historical Data, Nursing Documentation, Vital Signs Vital Signs: Last Vital Signs Temp 98.7 F 08/13/18 15:03 Pulse 92 H 08/13/18 15:03 Resp 18 08/13/18 15:03 BP 125/81 08/13/18 15:03 Pulse Ox 99 08/13/18 15:03 - Medical History PMH: Asthma, Back Problems (Sciatica), Bronchitis, HTN Surgical History: No Surg Hx Family History: States: Unknown Family Hx - Social History Hx Tobacco Use: No Hx Alcohol Use: No Hx Substance Use: No - Immunization History Hx Tetanus Toxoid Vaccination: No Hx Influenza Vaccination: No Hx Pneumococcal Vaccination: No Review Of Systems Musculoskeletal: Positive for: Back Pain Physical Exam - Physical Exam Appears: Well, Non-toxic, No Acute Distress Skin: Normal Color, Warm, Dry Head: Atraumatic, Normacephalic Eye(s): bilateral: Normal Inspection Ear(s): Bilateral: Normal Nose: Normal Oral Mucosa: Moist Lips: Normal Appearing Neck: Normal Lymphatic: Deferred Chest: Symmetrical, No Deformity Cardiovascular: Rhythm Regular, No Murmur Respiratory: Normal Breath Sounds, No Rales, No Rhonchi, No Wheezing Back: Paraspinal Tenderness (left paralumbar tenderness ) Neurological/Psych: Oriented x3, Normal Speech ED Course And Treatment O2 Sat by Pulse Oximetry: 99 (on RA) Pulse Ox Interpretation: Normal Medical Decision Making Medical Decision Making: Initial Impression: exacerbation of scatica Initial Plan: will give pain med and dc home Disposition Discussed With : Counseled Patient/Family Regarding: Diagnosis, Need For Followup, Rx Given - Disposition Disposition: HOME/ ROUTINE Disposition Time: 15:24 Condition: STABLE Additional Instructions: Ms. Callejas, thank you for letting us take care of you today. Return to the ER if your symptoms worsen, or if any problems. Take the medication listed below as prescribed. Follow up with your doctor this week for a re-evaluation. Prescriptions: Ibuprofen [Motrin] 1 tab PO Q8 PRN #30 tab PRN Reason: Pain, Mild (1-3) traMADol [Ultram] 1 tab PO Q6 PRN #10 tab PRN Reason: Pain, Moderate (4-7) Instructions: Sciatica, Low Back Pain in Adults Forms: [employer] (Romanian) Print Language: DOMINICAN - POA Present On Arrival: None - Clinical Impression Clinical Impression: Sciatica - Scribe Statement The provider has reviewed the documentation as recorded by the Delores Curtis All medical record entries made by the Delores were at my direction and personally dictated by me. I have reviewed the chart and agree that the record accurately reflects my personal performance of the history, physical exam, medical decision making, and the department course for this patient. I have also personally directed, reviewed, and agree with the discharge instructions and disposition.
== END 2018-08-13 15:35 | disposition home or self-care (01) ==
LOC: C.ER 14:54
DX: M54.32 Sciatica, left side (principal)
CPT/HCPCS: 96372; 99283; J1885

== ENCOUNTER 2018-09-18 09:46 | Emergency (ER) | payer OTHER ==
[2018-09-18 09:46] VITALS: BMI 24.9
[2018-09-18 09:53] VITALS: BP 133/91; PULSE 88; RESP 18; TEMP 97.5; O2SAT 100
== END 2018-09-18 10:20 | disposition left against medical advice (07) ==
LOC: C.ER 09:46
DX: Z02.89 Encounter for other administrative examinations (principal); M54.5 Low back pain

== ENCOUNTER 2018-09-18 10:41 | Emergency (ER) | payer OTHER ==
[2018-09-18 10:41] VITALS: BMI 24.9
[2018-09-18 10:50] VITALS: BP 135/86; PULSE 86; RESP 17; TEMP 98.1; O2SAT 99
--- NOTE | 2018-09-18 11:09 | C.PDOC ---
History Of Present Illness 58 y/o female,w/PMhx of sciatica, presents to the ER complaining of left sided lower back pain radiating down left leg since yesterday. Patient states this pain is similar to the pain she gets w/sciatica flare up. Patient states that the pain began after it was raining yesterday.Patient reports that she has allergy to Motrin (which is stomach upset) so she is requesting Toradol for pain. Denies having fever,chills, bowel/bladder dysfunction, difficulty ambulating, and trauma. Time Seen by Provider: 09/18/18 10:47 Chief Complaint (Nursing): Back Pain History Per: Patient History/Exam Limitations: no limitations Onset/Duration Of Symptoms: Days Current Symptoms Are (Timing): Still Present Severity: Moderate Past Medical History Reviewed: Historical Data, Nursing Documentation, Vital Signs Vital Signs: Last Vital Signs Temp 98.1 F 09/18/18 10:48 Pulse 86 09/18/18 10:48 Resp 17 09/18/18 10:48 BP 135/86 09/18/18 10:48 Pulse Ox 99 09/18/18 10:48 Primary Care Provider: Clinic,Med Surg - Medical History PMH: Asthma, Back Problems (Sciatica), Bronchitis, HTN Other Surgeries: Hx of surgeries Family History: States: No Known Family Hx - Social History Hx Tobacco Use: No Hx Alcohol Use: No Hx Substance Use: No - Immunization History Hx Tetanus Toxoid Vaccination: No Hx Influenza Vaccination: No Hx Pneumococcal Vaccination: No Review Of Systems Except As Marked, All Systems Reviewed And Found Negative. Constitutional: Negative for: Fever, Chills Genitourinary: Negative for: Dysuria, Incontinence, Hematuria Musculoskeletal: Positive for: Back Pain Neurological: Negative for: Weakness, Numbness Physical Exam - Physical Exam Appears: Non-toxic, No Acute Distress Skin: Normal Color, Warm, Dry Head: Atraumatic, Normacephalic Eye(s): bilateral: Normal Inspection Neck: Supple Chest: Symmetrical Cardiovascular: Rhythm Regular Respiratory: Normal Breath Sounds, No Rales, No Rhonchi, No Wheezing Gastrointestinal/Abdominal: Normal Exam, Soft, No Tenderness, No Guarding, No Rebound Back: No CVA Tenderness, No Paraspinal Tenderness Extremity: Normal ROM, No Tenderness, No Swelling Neurological/Psych: Oriented x3, Normal Speech, Normal Motor, Normal Sensation Gait: Steady ED Course And Treatment O2 Sat by Pulse Oximetry: 99 (RA) Pulse Ox Interpretation: Normal Medical Decision Making Medical Decision Making: Plan: --Toradol IM Updates: Pt re-eval. States feeling much better. Denies any pain, numbness/tingling, or any other complaints. Ambulating around room without any issue. Pt very well appearing and stable for d/c. Understands and agrees to immediately return to the ER if having worsening pain, bowel or bladder incontinence, numbness/tingling, weakness, trouble walking, or any other concerning, worsening, new or continued sxs. Otherwise states will f/u with pcp in 1-2 days. States will call [facility] for appts. Disposition Counseled Patient/Family Regarding: Diagnosis - Disposition Referrals: [facility] [Outside] [facility] [Outside] Disposition: HOME/ ROUTINE Disposition Time: 11:07 Condition: IMPROVED Additional Instructions: ALMA DELIA BRANTLEY, thank you for letting us take care of you today. Your provider was Carol Muhammad MD and you were treated for BACKPAIN. The emergency medical care you received today was directed at your acute symptoms. If you were prescribed any medication, please fill it and take as directed. It may take several days for your symptoms to resolve. Return to the Emergency Department if your symptoms worsen, do not improve, or if you have any other problems. Please contact your doctor or call one of the physicians/clinics you have been referred to that are listed on the Patient Visit Information form that is included in your discharge packet. Bring any paperwork you were given at discharge with you along with any medications you are taking to your follow up visit. Our treatment cannot replace ongoing medical care by a primary care provider outside of the emergency department. Thank you for allowing the [facility] team to be part of your care today. If you had an X-Ray or CT scan: A Radiologist will review the ED reading if any change in treatment is needed we will contact you. If you had a blood, urine, or wound culture: It will take several days for the results, if any change in treatment is needed we will contact you. If you had an STI test: It will take 48 hours for the results. Please call after 1 week if you have not heard back. Prescriptions: Ketorolac Tromethamine [Toradol] 10 mg PO TID #15 tab Instructions: Low Back Pain (DC), Sciatica (DC) Forms: [facility] (Salvadorean), General Discharge Instructions - POA Present On Arrival: None - Clinical Impression Clinical Impression: Sciatica, Lumbar back pain - Scribe Statement The provider has reviewed the documentation as recorded by the Delores Blake Provider Attestation: All medical record entries made by the Yrisibosiris were at my direction and personally dictated by me. I have reviewed the chart and agree that the record accurately reflects my personal performance of the history, physical exam, medical decision making, and the department course for this patient. I have also personally directed, reviewed, and agree with the discharge instructions and disposition.
== END 2018-09-18 11:34 | disposition home or self-care (01) ==
LOC: C.ER 10:41
DX: M54.40 Lumbago with sciatica, unspecified side (principal)
CPT/HCPCS: 96372; 99283; J1885